=== PATIENT | female | born 1985 | race American Indian/Alaskan Native ===

== ENCOUNTER 2020-02-01 12:04 | Inpatient (IN) | payer MEDICAID ==
--- NOTE | 2020-02-01 12:08 | History and Physical Report ---
History of Present Illness Date of examination: 02/01/20 Chief complaint: elevated b/p and swelling, BMI 85, pt unable to collect 24hr urine at home. History of present illness: EDC Calculations by LMP: 02/21/2020 Past History : 1 Term Births: 0 Premature Births: 0 Living Children: 0 Para: 0 Mult. Births: 0 Prev : 0 Aborta: 0 Elect. Ab: 0 Spont. 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 % Sun Exposure: occasionally Family History Risk Factors: Family History of IA in females < 65 years old: no Dietary Counseling: pn yes Past Medical History: Reviewed history and no changes required: Asthma: childhood, no intubations Past Surgical History: Reviewed history and no changes required: negative Past Medical History Anesthesia Complications: negative Anemia: negative Autoimmune Disorder: negative Bleeding Disorder: negative Blood Transfusions: negative Breast Disease: negative Diabetes: negative Heart Disease: negative Hypertension: negative Hepatitis/Liver Disease: negative Kidney Disease/UTI: negative Neurologic/Epilepsy/Migraines: negative Phlebitis/Varicosities: negative Psychiatric: negative Pulmonary Disease/Asthma: negative Thyroid Disease: negative Hospitalizations: negative 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 of genital herpes: no Partner hx. of genital herpes: no Rash, Viral, or Febrile illness since last LMP? no Varicella/Chicken Pox Status: No TB Risk: no Genetic History Congenital Heart Defect: Mom: no Dad: no Morgan Disease: Mom: no Dad: no Thalassemia Mom: no Dad: no Neural Tube Defect Mom: no Dad: no Down's Syndrome Mom: no Dad: no Luis A-Sachs Mom: no Dad: no Sickle Cell Disease/Trait Mom: no Dad: no Hemophilia Mom: no Dad: no Muscular Dystrophy Mom: no Dad: no Cystic Fibrosis Mom: no Dad: no Wells Chorea Mom: no Dad: no Mental Retardation Mom: no Dad: no Fragile X Mom: no Dad: no Other Genetic/Chromosomal Disorder Mom: no Dad: no Child w/other defect Mom: no Dad: no Enviromental Exposures Xray Exposure: no Medication, drug, or alcohol use since LMP: no Chemical/Other Exposure: no Exposure to Cat Liter: no Hx of Parvovirus (Fifth Disease): no Occupational Exposure to Children: none Active Medications: None Past History Past Medical History: other (see HPI) Past Surgical History: other (see HPI) 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 (see HPI) Family/Genetic History: other (see HPI) - Obstetrical History Expected Date of Delivery: 02/21/20 Actual Gestation: 37 Week(s) 1 Day(s) : 1 Para: 0 Hx # Term Pregnancies: 0 Number of Pregnancies: 0 Spontaneous Abortions: 0 Induced : 0 Number of Living Children: 0 Medications and Allergies Allergies Allergy/AdvReac Type Severity Reaction Status Date / Time No Known Allergies Allergy Unverified 02/01/20 13:03 Review of Systems All systems: negative - Physical Exam Breasts: Positive: normal Cardiovascular: Regular rate Lungs: Positive: Normal air movement Abdomen: Positive: normal appearance, soft Genitourinary (Female): Positive: normal external genitalia, normal perenium Vulva: both: normal Vagina: Positive: normal moisture - Obstetrical Uterine Contraction Monitor Mode: External Results All other labs normal. Assessment and Plan 34y/o @ 37+1 week, unable to complete 24hr urine at home d/t multiple "accidents". b/p elevated today in office 146/98 with 1+ proteinuria on urine dip. GBS Neg. consulted with Dr. brenner, plan to admit for 24hr urine, pre-e labs and monitoring. - Patient Problems (1) 37 weeks gestation of Current Visit: Yes Status: Acute (2) Gestational hypertension Current Visit: Yes Status: Acute Qualifiers: Trimester: third trimester Qualified Code(s): O13.3 - Gestational [-induced] hypertension without significant proteinuria, third trimester Plan to address problem: 24hr urine pre-e labs Monitoring of baby and VS (3) BMI 70 and over, adult Current Visit: Yes Status: Acute Plan to address problem: BMI 85 Anesthesia consult completed
[2020-02-01] MEDS ORDERED: DOCUSATE SODIUM 100 MG CAP PO PRN (12:09)
[2020-02-01] MEDS ORDERED: ACETAMINOPHEN 325 MG TAB PO PRN (12:09)
[2020-02-01] MEDS ORDERED: ALUM-MAG HYDROXIDE-SIMETHICONE 200-200-20MG/5ML ORAL LIQD 30 ML PO PRN (12:09)
[2020-02-01] MEDS ORDERED: MAGNESIUM HYDROXIDE (MOM) ORAL LIQD UDC PO PRN (12:09)
[2020-02-01] MEDS ORDERED: ONDANSETRON 4 MG/2 ML INJ IV PRN (12:09)
[2020-02-01] MEDS ORDERED: SIMETHICONE 80 MG CHEW TAB PO PRN (12:09)
[2020-02-01] MEDS ORDERED: SODIUM CHLORIDE NASAL SPRAY 44ML NS PRN (12:09)
[2020-02-01] MEDS ORDERED: diphenhydrAMINE 25 MG CAP PO PRN (12:09)
[2020-02-01 13:50] LABS: Basophils % (Auto) 0.4 % (0.0-1.8); Eosinophils % (Auto) 0.3 % (0.0-4.3); Hematocrit 30.7 % (30.3-42.9); Hemoglobin 9.9 gm/dl (10.1-14.3); Lymphocytes # (Auto) 1.3 K/mm3 (1.2-5.4); Lymphocytes % (Auto) 15.8 % (13.4-35.0); Mean Corpuscular HGB Conc 32 % (30-34); Mean Corpuscular Volume 86 fl (79-97); Monocytes # (Auto) 0.5 K/mm3 (0.0-0.8); Platelet Count 253 K/mm3 (140-440); Red Blood Count 3.58 M/mm3 (3.65-5.03); Red Cell Distribution Width 16.2 % (13.2-15.2)
[2020-02-01 14:13] LABS: Alanine Aminotransferase 10 units/L (7-56); Uric Acid 4.3 mg/dL (3.5-7.6)
--- NOTE | 2020-02-02 08:41 | Progress Note ---
Assessment and Plan A: 34 y.o. @ 37 + wks, observation for 24 hr urine collection, elevated BP's during office visit. P: 24 hr urine collection ends @ 130pm. Will develop a plan of care after receiving the results. Continue to monitor blood pressures. Consult placed to [facility] for recommendations. Subjective - Subjective Date of service: 02/02/20 (Pt doing well. ) Principal diagnosis: IUP @ 37 + wks, observation, 24 hour protein urine in progress Objective - Vital Signs Vital Signs: Vital Signs - 12hr 02/01/20 02/01/20 02/01/20 20:43 20:48 20:53 Temperature Pulse Rate 84 82 84 Respiratory Rate Blood Pressure Blood Pressure [Left] O2 Sat by Pulse 100 100 100 Oximetry 02/01/20 02/01/20 02/01/20 20:58 21:03 21:08 Temperature Pulse Rate 82 84 89 Respiratory Rate Blood Pressure Blood Pressure [Left] O2 Sat by Pulse 100 100 100 Oximetry 02/01/20 02/01/20 02/01/20 21:13 21:18 21:23 Temperature Pulse Rate 87 83 83 Respiratory Rate Blood Pressure Blood Pressure [Left] O2 Sat by Pulse 100 100 100 Oximetry 02/01/20 02/01/20 02/01/20 21:28 21:33 21:38 Temperature Pulse Rate 86 85 88 Respiratory Rate Blood Pressure Blood Pressure [Left] O2 Sat by Pulse 100 100 100 Oximetry 02/01/20 02/01/20 02/01/20 21:43 21:48 21:53 Temperature Pulse Rate 89 84 86 Respiratory Rate Blood Pressure Blood Pressure [Left] O2 Sat by Pulse 100 100 100 Oximetry 02/01/20 02/01/20 02/01/20 21:58 22:03 22:06 Temperature Pulse Rate 86 86 92 H Respiratory Rate Blood Pressure Blood Pressure [Left] O2 Sat by Pulse 100 100 81 L Oximetry 02/01/20 02/01/20 02/01/20 22:08 22:09 22:13 Temperature Pulse Rate 82 94 H 87 Respiratory Rate Blood Pressure 163/76 Blood Pressure [Left] O2 Sat by Pulse 100 100 Oximetry 02/01/20 02/01/20 02/01/20 22:18 22:23 22:28 Temperature Pulse Rate 85 85 88 Respiratory Rate Blood Pressure Blood Pressure [Left] O2 Sat by Pulse 100 100 100 Oximetry 02/01/20 02/01/20 02/01/20 22:33 22:38 22:43 Temperature Pulse Rate 84 87 89 Respiratory Rate Blood Pressure Blood Pressure [Left] O2 Sat by Pulse 100 100 100 Oximetry 02/01/20 02/01/20 02/01/20 22:48 22:53 22:58 Temperature Pulse Rate 87 86 89 Respiratory Rate Blood Pressure Blood Pressure [Left] O2 Sat by Pulse 100 100 100 Oximetry 02/01/20 02/01/20 02/01/20 23:03 23:24 23:25 Temperature Pulse Rate 85 85 90 Respiratory Rate Blood Pressure 145/66 Blood Pressure [Left] O2 Sat by Pulse 100 100 Oximetry 02/01/20 02/01/20 02/01/20 23:29 23:34 23:37 Temperature 98.4 F Pulse Rate 82 97 H Respiratory 18 Rate Blood Pressure Blood Pressure [Left] O2 Sat by Pulse 100 100 Oximetry 02/01/20 02/01/20 02/01/20 23:39 23:44 23:49 Temperature Pulse Rate 86 89 84 Respiratory Rate Blood Pressure Blood Pressure [Left] O2 Sat by Pulse 99 99 99 Oximetry 02/01/20 02/01/20 02/02/20 23:54 23:59 00:04 Temperature Pulse Rate 86 83 81 Respiratory Rate Blood Pressure Blood Pressure [Left] O2 Sat by Pulse 99 99 99 Oximetry 02/02/20 02/02/20 02/02/20 00:09 00:14 00:19 Temperature Pulse Rate 89 81 84 Respiratory Rate Blood Pressure 138/68 Blood Pressure [Left] O2 Sat by Pulse 98 100 100 Oximetry 02/02/20 02/02/20 02/02/20 00:24 00:29 00:31 Temperature Pulse Rate 91 H 86 70 Respiratory Rate Blood Pressure Blood Pressure [Left] O2 Sat by Pulse 100 100 72 L Oximetry 02/02/20 02/02/20 02/02/20 00:34 00:39 00:44 Temperature Pulse Rate 83 85 89 Respiratory Rate Blood Pressure Blood Pressure [Left] O2 Sat by Pulse 100 99 99 Oximetry 02/02/20 02/02/20 02/02/20 00:49 00:54 00:59 Temperature Pulse Rate 90 85 83 Respiratory Rate Blood Pressure Blood Pressure [Left] O2 Sat by Pulse 98 99 99 Oximetry 02/02/20 02/02/2020 01:04 01:09 01:14 Temperature Pulse Rate 87 88 79 Respiratory Rate Blood Pressure 141/73 Blood Pressure [Left] O2 Sat by Pulse 100 98 99 Oximetry 02/02/20 02/02/20 02/02/20 01:19 01:24 01:29 Temperature Pulse Rate 84 85 86 Respiratory Rate Blood Pressure Blood Pressure [Left] O2 Sat by Pulse 98 98 98 Oximetry 02/02/20 02/02/20 02/02/20 01:34 01:39 01:44 Temperature Pulse Rate 85 87 90 Respiratory Rate Blood Pressure Blood Pressure [Left] O2 Sat by Pulse 98 98 98 Oximetry 02/02/20 02/02/20 02/02/20 01:49 01:51 01:54 Temperature Pulse Rate 93 H 88 85 Respiratory Rate Blood Pressure Blood Pressure [Left] O2 Sat by Pulse 94 86 97 Oximetry 02/02/20 02/02/20 02/02/20 01:56 01:59 02:04 Temperature Pulse Rate 89 95 H 88 Respiratory Rate Blood Pressure Blood Pressure [Left] O2 Sat by Pulse 91 100 99 Oximetry 02/02/20 02/02/20 02/02/20 02:09 02:14 02:19 Temperature Pulse Rate 107 H 90 85 Respiratory Rate Blood Pressure 133/81 Blood Pressure [Left] O2 Sat by Pulse 97 100 99 Oximetry 02/02/20 02/02/20 02/02/20 02:24 02:29 03:00 Temperature Pulse Rate 84 93 H 98 H Respiratory Rate Blood Pressure Blood Pressure [Left] O2 Sat by Pulse 98 98 82 L Oximetry 02/02/20 02/02/20 02/02/20 03:01 03:06 03:09 Temperature Pulse Rate 105 H 86 90 Respiratory Rate Blood Pressure 143/62 Blood Pressure [Left] O2 Sat by Pulse 99 100 87 Oximetry 02/02/20 02/02/20 02/02/20 03:11 03:16 03:19 Temperature Pulse Rate 89 87 88 Respiratory Rate Blood Pressure Blood Pressure [Left] O2 Sat by Pulse 98 99 90 Oximetry 02/02/20 02/02/20 02/02/20 03:21 03:26 03:27 Temperature Pulse Rate 83 93 H 100 H Respiratory Rate Blood Pressure Blood Pressure [Left] O2 Sat by Pulse 99 100 93 Oximetry 02/02/20 02/02/20 02/02/20 03:31 03:36 03:41 Temperature Pulse Rate 82 90 84 Respiratory Rate Blood Pressure Blood Pressure [Left] O2 Sat by Pulse 100 100 99 Oximetry 02/02/20 02/02/20 02/02/20 03:46 03:51 03:56 Temperature Pulse Rate 87 83 87 Respiratory Rate Blood Pressure Blood Pressure [Left] O2 Sat by Pulse 99 98 99 Oximetry 02/02/20 02/02/20 02/02/20 04:00 04:01 04:06 Temperature 98 F Pulse Rate 98 H 90 82 Respiratory 18 Rate Blood Pressure Blood Pressure 124/62 [Left] O2 Sat by Pulse 99 99 100 Oximetry 02/02/20 02/02/20 02/02/20 04:09 04:11 04:16 Temperature Pulse Rate 98 H 84 88 Respiratory Rate Blood Pressure 124/62 Blood Pressure [Left] O2 Sat by Pulse 99 99 Oximetry 02/02/20 02/02/20 02/02/20 04:21 04:26 04:31 Temperature Pulse Rate 87 84 87 Respiratory Rate Blood Pressure Blood Pressure [Left] O2 Sat by Pulse 99 98 98 Oximetry 02/02/20 02/02/20 02/02/20 04:35 04:36 04:41 Temperature Pulse Rate 83 86 93 H Respiratory Rate Blood Pressure Blood Pressure [Left] O2 Sat by Pulse 93 97 94 Oximetry 02/02/20 02/02/20 02/02/20 04:46 04:51 04:56 Temperature Pulse Rate 95 H 95 H 96 H Respiratory Rate Blood Pressure Blood Pressure [Left] O2 Sat by Pulse 94 94 100 Oximetry 02/02/20 02/02/20 02/02/20 05:01 05:06 05:09 Temperature Pulse Rate 86 81 105 H Respiratory Rate Blood Pressure 122/87 Blood Pressure [Left] O2 Sat by Pulse 99 98 Oximetry 02/02/20 02/02/20 02/02/20 05:11 05:16 05:21 Temperature Pulse Rate 98 H 85 86 Respiratory Rate Blood Pressure Blood Pressure [Left] O2 Sat by Pulse 98 99 99 Oximetry 02/02/20 02/02/20 02/02/20 05:26 05:31 05:36 Temperature Pulse Rate 86 88 86 Respiratory Rate Blood Pressure Blood Pressure [Left] O2 Sat by Pulse 99 98 99 Oximetry 02/02/20 02/02/20 02/02/20 05:41 05:46 05:51 Temperature Pulse Rate 84 88 92 H Respiratory Rate Blood Pressure Blood Pressure [Left] O2 Sat by Pulse 99 99 100 Oximetry 02/02/20 02/02/20 02/02/20 05:56 05:58 06:01 Temperature Pulse Rate 86 85 87 Respiratory Rate Blood Pressure Blood Pressure [Left] O2 Sat by Pulse 98 90 98 Oximetry 02/02/20 02/02/20 02/02/20 06:05 06:06 06:09 Temperature Pulse Rate 91 H 94 H 101 H Respiratory Rate Blood Pressure 189/84 Blood Pressure [Left] O2 Sat by Pulse 94 96 Oximetry 02/02/20 02/02/20 02/02/20 06:11 06:24 06:29 Temperature Pulse Rate 85 108 H 94 H Respiratory Rate Blood Pressure Blood Pressure [Left] O2 Sat by Pulse 100 100 99 Oximetry 02/02/20 02/02/20 02/02/20 06:33 06:34 06:39 Temperature Pulse Rate 93 H 89 86 Respiratory Rate Blood Pressure 114/76 Blood Pressure [Left] O2 Sat by Pulse 100 100 Oximetry 02/02/20 02/02/20 02/02/20 06:44 06:49 06:54 Temperature Pulse Rate 101 H 81 85 Respiratory Rate Blood Pressure Blood Pressure [Left] O2 Sat by Pulse 100 100 100 Oximetry 02/02/20 02/02/20 02/02/20 06:59 07:04 07:09 Temperature 98.3 F Pulse Rate 82 80 84 Respiratory 18 Rate Blood Pressure 134/65 Blood Pressure [Left] O2 Sat by Pulse 100 100 Oximetry 02/02/20 02/02/20 02/02/20 07:10 07:15 07:20 Temperature Pulse Rate 85 81 89 Respiratory Rate Blood Pressure Blood Pressure [Left] O2 Sat by Pulse 100 100 100 Oximetry 02/02/20 02/02/20 02/02/20 07:25 07:30 07:35 Temperature Pulse Rate 86 93 H 78 Respiratory Rate Blood Pressure Blood Pressure [Left] O2 Sat by Pulse 100 100 100 Oximetry 02/02/20 02/02/20 02/02/20 07:40 07:45 07:50 Temperature Pulse Rate 84 81 91 H Respiratory Rate Blood Pressure Blood Pressure [Left] O2 Sat by Pulse 100 100 100 Oximetry 02/02/20 02/02/20 02/02/20 07:55 08:00 08:05 Temperature Pulse Rate 93 H 84 85 Respiratory Rate Blood Pressure Blood Pressure [Left] O2 Sat by Pulse 100 100 100 Oximetry 02/02/20 02/02/20 02/02/20 08:10 08:15 08:20 Temperature Pulse Rate 95 H 90 86 Respiratory Rate Blood Pressure Blood Pressure [Left] O2 Sat by Pulse 100 100 100 Oximetry 02/02/20 02/02/20 02/02/20 08:25 08:28 08:30 Temperature Pulse Rate 85 53 L 80 Respiratory Rate Blood Pressure Blood Pressure [Left] O2 Sat by Pulse 100 76 L 100 Oximetry 02/02/20 08:35 Temperature Pulse Rate 77 Respiratory Rate Blood Pressure Blood Pressure [Left] O2 Sat by Pulse 100 Oximetry - Exam Narrative Exam: Pt denies HARMON, blurred vision, spots before her eyes, chest pain, shortness of breath, and upper abdominal pain. BP ranges have been 110's-180's/60-80's. Breasts: deferred Cardiovascular: Normal S1, Normal S2 Lungs: Normal air movement Abdomen: Present: normal appearance, soft Vulva: both: normal Uterus: Present: normal FHR: auscultation normal, category 1 Uterine Contraction Monitor Mode: External Uterine Contraction Pattern: Absent Uterine Tone Measurement Phase: Resting Extremities: edema (+ 2 to lower extremities. ) Deep Tendon Reflex Grade: Normal +2 - Labs Labs: Abnormal Labs 02/01/20 13:15 RBC 3.58 L Hgb 9.9 L RDW 16.2 H Seg Neutrophils % 77.5 H Laboratory Results - last 24 hr 02/01/20 02/01/20 13:15 13:15 WBC 8.3 RBC 3.58 L Hgb 9.9 L Hct 30.7 MCV 86 MCH 28 MCHC 32 RDW 16.2 H Plt Count 253 Lymph % (Auto) 15.8 [place] % (Auto) 6.0 Eos % (Auto) 0.3 Baso % (Auto) 0.4 Lymph # (Auto) 1.3 [place] # (Auto) 0.5 Eos # (Auto) 0.0 Baso # (Auto) 0.0 Seg Neutrophils % 77.5 H Seg Neutrophils # 6.5 Creatinine 0.6 Estimated GFR > 60 Uric Acid 4.3 AST 28 ALT 10
[2020-02-02] MEDS: PRENATAL VIT27-FE FUMARATE-FOLIC ACID VIT TAB PO SCH (09:57)
--- NOTE | 2020-02-02 10:29 | Event Note ---
Date: 02/02/20 (Call placed to [facility]) Consult ordered and call placed to [facility] to let them know that pt was admitted for obs on 02/01 d/t elevated blood pressures in the office. Spoke with Robe at [facility] office and she will let Dr. Lassiter know regarding pt being admitted to obs.
[2020-02-02] MEDS: FERROUS SULFATE 325 MG TAB PO SCH (12:25)
--- NOTE | 2020-02-02 12:59 | Event Note ---
Date: 02/02/20 (Spoke with Dr. Lassiter) Spoke with Dr. Lassiter regarding pt and updated on pt condition and status. No new change in plan per Dr. Lassiter at this time. Continue to collect 24 hr urine, monitor pt blood pressures and status through [facility]. D/t finish at 1330 today. He will come evaluate pt during hospital stay.
--- NOTE | 2020-02-02 19:18 | Event Note ---
Date: 02/02/20 I advised pt and mother of protein findings and that we are now awaiting further recommendations from Dr. Lassiter regarding d/c to home vs labor induction. I advised that 24hr protein was less than 300mg/24 hours at this time. Pt expressed understanding. Pt inquired if she could have less monitoring of her blood pressure and the baby. I advised that she will have NST q shift and BPs q 4hrs for now as she has be stable with normal blood pressures since the admission with a couple of outliers noted. Again pt and mother expressed understanding and questions were addressed and answered.
[2020-02-03 07:13] VITALS: BP 108/71
[2020-02-03] MEDS: FERROUS SULFATE 325 MG TAB PO SCH (09:01)
[2020-02-03] MEDS: PRENATAL VIT27-FE FUMARATE-FOLIC ACID VIT TAB PO SCH (09:01)
--- NOTE | 2020-02-03 09:19 | Discharge Summary ---
Providers - Providers Date of Admission: 02/01/20 12:25 Date of discharge: 02/03/20 Attending physician: FUENTES ORDONEZ 02/02/20 10:22 Consult to Physician [CONS] Routine Comment: Consulting Provider: ALEXIS MUNOZ Physician Instructions: Reason For Exam: Elevated blood pressures during office visit Primary care physician: FUENTES ORDONEZ Hospitalization Reason for admission: Gestational hypertension, morbid obesity with BMI of 85.5 kg/m Condition: Good Pertinent studies: 24-hour urine collection for protein Procedures: 24-hour urine collection Hospital course: Patient was admitted to hospital due to gestational diabetes and inadequate collection of 24-hour urine for protein done at home. Due to patient's hospitalization her vast majority her blood pressures within normal limit with some isolated elevated blood pressures. Her 24-hour urine collection 1300 cc were collected with a urine protein less than 300. Patient will be discharged to home care to normal blood pressures and lack of significant proteinuria. Disposition: DC- TO HOME OR SELFCARE - Discharge Diagnoses (1) 37 weeks gestation of Status: Acute (2) BMI 70 and over, adult Status: Acute (3) Gestational hypertension Status: Acute Qualifiers: Trimester: third trimester Qualified Code(s): O13.3 - Gestational [-induced] hypertension without significant proteinuria, third trimester Core Measure Documentation - Palliative Care Palliative Care/ Comfort Measures: Not Applicable - Core Measures Any of the following diagnoses?: none Exam - Constitutional Vitals: Temp Pulse Resp BP Pulse Ox 98.0 F 88 20 108/71 100 02/03/20 07:15 02/03/20 07:15 02/03/20 07:15 02/03/20 07:15 02/02/20 15:42 General appearance: Present: no acute distress - Respiratory Respiratory effort: normal - Cardiovascular Rhythm: regular - Extremities Extremity abnormal: edema (2+) Peripheral Pulses: within normal limits - Abdominal General gastrointestinal: Present: soft, non-tender Female genitourinary: Present: deferred - Rectal Rectal Exam: deferred - Integumentary Integumentary: Present: clear, warm, dry - Neurologic Neurologic: moves all extremities Plan Activity: fall precautions Weight Bearing Status: Weight Bear as Tolerated Diet: low salt Additional Instructions: Patient given labor cautions call office for fever chills nausea vomiting contractions every 5 minutes rupture of membranes. Also preeclampsia precautions call for headache blurred visions or upper abdominal pain. Follow up with: UFENTES ORDONEZ MD [Primary Care Provider] - 7 Days
== END 2020-02-03 09:34 | disposition home or self-care (01) | DRG 782 ==
LOC: TRG 12:04 → LD 12:05 → TRG 12:22 → LD 12:25
PROVIDERS: ADMIT Obstetrics & Gynecology; ATTEND Obstetrics & Gynecology
DX: O13.3 Gestational [pregnancy-induced] hypertension without significant proteinuria, third trimester (principal); Z3A.37 37 weeks gestation of pregnancy; Z68.45 Body mass index [BMI] 70 or greater, adult; Z82.49 Family history of ischemic heart disease and other diseases of the circulatory system; Z83.3 Family history of diabetes mellitus; O99.213 Obesity complicating pregnancy, third trimester; E66.01 Morbid (severe) obesity due to excess calories
CPT/HCPCS: 36415; 82565; 84156; 84450; 84460; 84550; 85025; G0378; U0003

== ENCOUNTER 2020-02-14 11:16 | Inpatient (IN) | payer MEDICAID ==
[2020-02-14] MEDS ORDERED: LOPERAMIDE 2 MG CAP PO PRN (12:36)
[2020-02-14] MEDS ORDERED: ePHEDrine SULFATE 50 MG/1 ML INJ IV PRN (12:36)
[2020-02-14] MEDS ORDERED: CARBOPROST TROMETHAMINE 250 MCG/1 ML INJ IM PRN (12:36)
[2020-02-14] MEDS ORDERED: LIDOCAINE (2%) 20 MG/1 ML VIAL 20 ML MDV INFILTRATI NR (12:36)
[2020-02-14] MEDS ORDERED: METHYLERGONOVINE MALEATE 0.2 MG/ML VIAL IM PRN (12:36)
[2020-02-14] MEDS ORDERED: OXYTOCIN 10 UNIT/1 ML INJ IM PRN (12:36)
[2020-02-14] MEDS ORDERED: TERBUTALINE 1 MG/1 ML INJ SUB-Q PRN (12:36)
[2020-02-14] MEDS ORDERED: ONDANSETRON 4 MG/2 ML INJ IV PRN (12:36)
[2020-02-14] MEDS ORDERED: miSOPROStol 200 MCG TAB PR PRN (12:36)
--- NOTE | 2020-02-14 12:46 | History and Physical Report ---
History of Present Illness Date of examination: 02/14/20 Date of admission: 02/14/20 11:16 Chief complaint: GHTN and Oligo noted in [facility] office sent to L&D for IOL/delivery History of present illness: Pt denies any chges in HX noted below at todays assessment EDC Confirmation: 02/21/2020 Past History : 1 Term Births: 0 Premature Births: 0 Living Children: 0 Para: 0 Mult. Births: 0 Prev : 0 Aborta: 0 Elect. Ab: 0 Spont. 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 % Sun Exposure: occasionally Family History Risk Factors: Family History of UT in females < 65 years old: no Dietary Counseling: pn yes Past Medical History: Reviewed history and no changes required: Asthma: childhood, no intubations Past Surgical History: Reviewed history and no changes required: negative Past Medical History Anesthesia Complications: negative Anemia: negative Autoimmune Disorder: negative Bleeding Disorder: negative Blood Transfusions: negative Breast Disease: negative Diabetes: negative Heart Disease: negative Hypertension: negative Hepatitis/Liver Disease: negative Kidney Disease/UTI: negative Neurologic/Epilepsy/Migraines: negative Phlebitis/Varicosities: negative Psychiatric: negative Pulmonary Disease/Asthma: negative Thyroid Disease: negative Hospitalizations: negative Surgery (Non-quality head): negative Abnormal PAP: negative DAYNA Exposure: negative Infertility: negative Uterine Anomaly: negative Uterine Surgery (not C/S): negative Other Gynecologic Problems: negative Family Hx: HTN, Diabetes Infection History Hx of STD: Trich HIV Risk Eval: no Hepatitis B Risk Eval: low risk Personal hx. of genital herpes: no Partner hx. of genital herpes: no Rash, Viral, or Febrile illness since last LMP? no Varicella/Chicken Pox Status: No TB Risk: no Genetic History Congenital Heart Defect: Mom: no Dad: no Morgan Disease: Mom: no Dad: no Thalassemia Mom: no Dad: no Neural Tube Defect Mom: no Dad: no Down's Syndrome Mom: no Dad: no Luis A-Sachs Mom: no Dad: no Sickle Cell Disease/Trait Mom: no Dad: no Hemophilia Mom: no Dad: no Muscular Dystrophy Mom: no Dad: no Cystic Fibrosis Mom: no Dad: no [place] Chorea Mom: no Dad: no Mental Retardation Mom: no Dad: no Fragile X Mom: no Dad: no Other Genetic/Chromosomal Disorder Mom: no Dad: no Child w/other defect Mom: no Dad: no Enviromental Exposures Xray Exposure: no Medication, drug, or alcohol use since LMP: no Chemical/Other Exposure: no Exposure to Cat Liter: no Hx of Parvovirus (Fifth Disease): no Occupational Exposure to Children: none Active Medications: None Current Allergies: No known allergies Past History Past Medical History: no pertinent history Past Surgical History: no surgical history REHAB AID History: fibroids Family/Genetic History: diabetes, hypertension Social history: no significant social history, single, lives with family - Obstetrical History Expected Date of Delivery: 02/21/20 Actual Gestation: 39 Week(s) 0 Day(s) : 1 Para: 0 Hx # Term Pregnancies: 0 Number of Pregnancies: 0 Spontaneous Abortions: 0 Induced : 0 Number of Living Children: 0 Medications and Allergies Allergies Allergy/AdvReac Type Severity Reaction Status Date / Time No Known Allergies Allergy Verified 02/14/20 11:36 Home Medications Medication Instructions Recorded Confirmed Last Taken Type Iron 1 tab PO DAILY 02/03/20 02/03/20 01/31/20 09:00 History 1 Vitamin 1 tab PO DAILY 02/03/20 02/03/20 01/31/20 10:00 History 1 Review of Systems All systems: negative Constitutional: weight gain Eyes: normal appearance Ears, nose, mouth and throat: deferred Breasts: normal Genitourinary: normal appearance Rectal Exam: deferred Integumentary: deferred - Vital Signs Vital signs: Vital Signs Pulse BP 110 H 142/67 02/14/20 11:53 02/14/20 11:53 Temp Pulse Resp BP Pulse Ox 98.5 F 110 H 24 142/67 02/14/20 12:06 02/14/20 12:06 02/14/20 12:06 02/14/20 12:06 - Physical Exam Breasts: Positive: deferred Cardiovascular: Regular rate, Normal S1, Normal S2 Lungs: Positive: Clear to auscultation Abdomen: Positive: normal appearance, soft, normal bowel sounds. Negative: distention, tenderness Genitourinary (Female): Positive: normal external genitalia Vulva: both: normal Vagina: Positive: normal moisture. Negative: discharge Cervix: Negative: lesion, discharge Uterus: Positive: normal size, normal contour Adnexa: both: normal Anus/Rectum: Positive: normal perianal skin, heme negative. Negative: rectal mass, hemorrhoids Extremities: Positive: edema Deep Tendon Reflex Grade: Normal +2 - Obstetrical FHR: auscultation normal Uterine Contraction Monitor Mode: External Results All other labs normal. GBS Negative GTT @ 28w 94 Total protein: 09/07/19 250 02/02/20 234 HBsAg Screen Negative Negative *1 RPR Non Reactive Non Reactive *2 Rubella Antibodies, IgG 1.31 index Immune >0.99 *3 Non-immune <0.90 Equivocal 0.90 - 0.99 Immune >0.99 ABO Grouping A *4 Rh Factor Positive *5 Please note: Prior records for this patient's ABO / Rh type are not available for additional verification. Antibody Screen Negative Negative *6 WBC 6.0 x10E3/uL 3.4-10.8 *7 RBC 3.78 x10E6/uL 3.77-5.28 *8 Hemoglobin [L] 10.0 g/dL 11.1-15.9 *9 Hematocrit [L] 32.3 % 34.0-46.6 *10 MCV 85 fL 79-97 *11 MCH [L] 26.5 pg 26.6-33.0 *12 MCHC [L] 31.0 g/dL 31.5-35.7 *13 RDW [H] 16.8 % 11.7-15.4 *14 Platelets 206 x10E3/uL 150-450 *15 Neutrophils 59 % Not Estab. *16 Lymphs 33 % Not Estab. *17 Monocytes 7 % Not Estab. *18 Eos 1 % Not Estab. *19 Basos 0 % Not Estab. *20 ! Immature Cells <No Reported Value> *21 Neutrophils (Absolute) 3.5 x10E3/uL 1.4-7.0 *22 Lymphs (Absolute) 2.0 x10E3/uL 0.7-3.1 *23 Monocytes(Absolute) 0.4 x10E3/uL 0.1-0.9 *24 Eos (Absolute) 0.1 x10E3/uL 0.0-0.4 *25 Baso (Absolute) 0.0 x10E3/uL 0.0-0.2 *26 ! Immature Granulocytes 0 % Not Estab. *27 ! Immature Grans (Abs) 0.0 x10E3/uL 0.0-0.1 *28 ! NRBC <No Reported Value> *29 Hematology Comments: <No Reported Value> *30 Tests: (2) HB Solu + Rflx Frac (373125) Hemoglobin (Hgb) Solubility Negative Negative *31 Tests: (3) HIV Ag/Ab with Reflex ([id number]) HIV Screen 4th Generation wRfx Non Reactive Non Reactive *32 Tests: (4) Varicella-Zoster V Ab, IgG ([id number]) ! Varicella Zoster IgG [L] <135 index Immune >165 *33 Negative <135 Equivocal 135 - 165 Positive >165 A positive result generally indicates exposure to the pathogen or administration of specific immunoglobulins, but it is not indication of active infection or stage of disease. Tests: (5) Gest. Diabetes 1-Hr Screen ([id number]) ! Gestational Diabetes Screen 104 mg/dL 65-139 *34 According to ADA, a glucose threshold of >139 mg/dL after 50-gram load identifies approximately 80% of women with gestational diabetes mellitus, while the sensitivity is further increased to approximately 90% by a threshold of >129 mg/dL. Tests: (6) HCV Ab w/Rflx to Verification ([id number]) ! HCV Ab <0.1 s/co ratio 0.0-0.9 *35 Tests: (7) Comment: ([id number]) ! Comment: SPRCS *36 Non reactive HCV antibody screen is consistent with no HCV infection, unless recent infection is suspected or other evidence exists to indicate HCV infection. Tests: (8) Urine Culture, Routine ([id number]) Urine Culture, Routine Final report *37 Tests: (9) Result ([id number]) ! Result 1 MUG *38 Mixed urogenital trini 10,000-25,000 colony forming units per mL Assessment and Plan 34yo @ 39weeks sent from [facility] for IOL/delivery due to oligo and GHTN. GBS negative. All orders in EMR. SVE defered until Dr Barr can come to evaluate pt. All questions addressed from pt and her mom. - Patient Problems (1) Gestational hypertension Onset Date: ~02/14/20 Current Visit: No Status: Acute Qualifiers: Trimester: third trimester Qualified Code(s): O13.3 - Gestational [-induced] hypertension without significant proteinuria, third trimester Plan to address problem: Dr Barahona called BP 150/80 in their office this morning. GHTN move forward with delivery. (2) Oligohydramnios in third trimester Onset Date: ~02/14/20 Current Visit: Yes Status: Acute Qualifiers: Fetus number: single or unspecified fetus Qualified Code(s): O41.03X0 - Oligohydramnios, third trimester, not applicable or unspecified Plan to address problem: Received a call from Dr Barahona @ [facility] notifying us that pt's ARAM 5 and to move forward IOL/delivery. Pt instructed to come to L&D (3) Morbid obesity with BMI of 70 and over, adult Onset Date: ~02/14/20 Current Visit: Yes Status: Acute Plan to address problem: BMI @ the first visit in office 79 todays BMI is 84 Pt has had a 32 pound wgt gain for the
[2020-02-14 13:34] LABS: Hematocrit 27.8 % (30.3-42.9); Hemoglobin 9.5 gm/dl (10.1-14.3); Mean Corpuscular HGB Conc 34 % (30-34); Mean Corpuscular Volume 84 fl (79-97); Platelet Count 207 K/mm3 (140-440); Red Blood Count 3.31 M/mm3 (3.65-5.03)
[2020-02-14 13:57] LABS: Alanine Aminotransferase 8 units/L (7-56); Uric Acid 4.1 mg/dL (3.5-7.6)
[2020-02-14] MEDS: LACTATED RINGERS 1,000 ML IV SCH ×2 (15:04→22:35)
[2020-02-14 15:31] LABS: Bilirubin,Urine NEG (Negative); Blood,Urine NEG (Negative); Color,Urine Yellow (Yellow); Mucus,Urine FEW /HPF; Protein,Urine <15 mg/dL mg/dL (Negative)
--- NOTE | 2020-02-14 19:34 | Progress Note ---
Assessment and Plan Limitations of determining adequateness of the pelvis at this EGA and BMI discussed. She was informed there may be a 1-2# weight discrepancy by US in the 3rd trimester. Risks with ZOE discussed, including but not limited to, shoulder dystocia in which the may have transient or permanent paralysis of the the extremities, brain damage or as well as infection. Also discussed possible injury to the rectum or perineum that may require multiple surgeries and result in permanent difficulties with bowel movements and pain. Risks associated with delivery explained, including but not limited to, bleeding that may require a blood transfusion, infection, injury to her bowel and/or bladder or ureters that may be life threatening or fatal. Questions were encouraged and answered. . Serial IOL explained, with patient's BMI she's is a poor surgical candidate. Will attempt to perform IOL procedures only in the am. . Will have continuous monitoring tonight and start cervidil in am. She voiced understanding and desires to proceed with ZOE - Patient Problems (1) 39 weeks gestation of Onset Date: ~02/14/20 Current Visit: Yes Status: Acute (2) Morbid obesity with BMI of 70 and over, adult Onset Date: ~02/14/20 Current Visit: Yes Status: Acute (3) Oligohydramnios in third trimester Onset Date: ~02/14/20 Current Visit: Yes Status: Acute Qualifiers: Fetus number: single or unspecified fetus Qualified Code(s): O41.03X0 - Oligohydramnios, third trimester, not applicable or unspecified (4) Gestational hypertension Onset Date: ~02/14/20 Current Visit: No Status: Acute Qualifiers: Trimester: third trimester Qualified Code(s): O13.3 - Gestational [-induced] hypertension without significant proteinuria, third trimester Subjective - Subjective Date of service: 02/14/20 Principal diagnosis: IUP@[id number], BMI 85, oligohydramnios, GHTN Interval history: No complaints, FM, no UC's, no contractions. Patient reports: movement normal, no new complaints, no loss of fluid, no vaginal bleeding, no contractions Objective - Vital Signs Vital Signs: Vital Signs - 12hr 02/14/20 02/14/20 02/14/20 11:53 12:06 13:17 Temperature 98.5 F Pulse Rate 110 H 110 H 87 Respiratory 24 Rate Blood Pressure 142/67 125/66 Blood Pressure 142/67 [Right] O2 Sat by Pulse Oximetry 02/14/20 02/14/20 02/14/20 13:19 13:24 13:29 Temperature Pulse Rate 44 L 85 91 H Respiratory Rate Blood Pressure Blood Pressure [Right] O2 Sat by Pulse 98 100 100 Oximetry 02/14/20 02/14/20 02/14/20 13:34 13:39 13:44 Temperature Pulse Rate 86 93 H 96 H Respiratory Rate Blood Pressure Blood Pressure [Right] O2 Sat by Pulse 100 100 100 Oximetry 02/14/20 02/14/20 02/14/20 13:49 13:54 13:59 Temperature Pulse Rate 95 H 92 H 89 Respiratory Rate Blood Pressure Blood Pressure [Right] O2 Sat by Pulse 100 100 100 Oximetry 02/14/20 02/14/20 02/14/20 14:04 14:09 14:14 Temperature Pulse Rate 90 86 92 H Respiratory Rate Blood Pressure Blood Pressure [Right] O2 Sat by Pulse 100 100 100 Oximetry 02/14/20 02/14/20 02/14/20 15:06 15:11 15:16 Temperature Pulse Rate 82 74 97 H Respiratory Rate Blood Pressure 128/58 Blood Pressure [Right] O2 Sat by Pulse 100 100 100 Oximetry 02/14/20 02/14/20 02/14/20 15:21 15:26 15:31 Temperature Pulse Rate 91 H 84 82 Respiratory Rate Blood Pressure Blood Pressure [Right] O2 Sat by Pulse 100 100 100 Oximetry 02/14/20 02/14/20 02/14/20 15:36 15:38 15:41 Temperature Pulse Rate 85 64 90 Respiratory Rate Blood Pressure Blood Pressure [Right] O2 Sat by Pulse 100 89 100 Oximetry 02/14/20 02/14/20 02/14/20 15:46 15:49 15:51 Temperature Pulse Rate 87 87 81 Respiratory Rate Blood Pressure Blood Pressure [Right] O2 Sat by Pulse 100 86 100 Oximetry 02/14/20 02/14/20 02/14/20 15:56 16:01 16:06 Temperature Pulse Rate 86 84 84 Respiratory Rate Blood Pressure Blood Pressure [Right] O2 Sat by Pulse 100 100 100 Oximetry 02/14/20 02/14/20 02/14/20 16:11 16:16 16:21 Temperature Pulse Rate 88 105 H 88 Respiratory Rate Blood Pressure Blood Pressure [Right] O2 Sat by Pulse 100 100 100 Oximetry 02/14/20 02/14/20 02/14/20 16:26 16:31 16:36 Temperature Pulse Rate 92 H 94 H 85 Respiratory Rate Blood Pressure Blood Pressure [Right] O2 Sat by Pulse 100 100 100 Oximetry 02/14/20 02/14/20 02/14/20 16:41 16:46 16:51 Temperature Pulse Rate 90 84 86 Respiratory Rate Blood Pressure Blood Pressure [Right] O2 Sat by Pulse 100 100 100 Oximetry 02/14/20 02/14/20 02/14/20 16:55 16:56 17:01 Temperature Pulse Rate 85 85 83 Respiratory Rate Blood Pressure 138/62 Blood Pressure [Right] O2 Sat by Pulse 100 100 Oximetry 02/14/20 02/14/20 02/14/20 17:06 17:11 17:16 Temperature Pulse Rate 86 91 H 86 Respiratory Rate Blood Pressure Blood Pressure [Right] O2 Sat by Pulse 100 100 100 Oximetry 02/14/20 02/14/20 02/14/20 17:21 17:26 17:31 Temperature Pulse Rate 87 85 89 Respiratory Rate Blood Pressure Blood Pressure [Right] O2 Sat by Pulse 100 100 100 Oximetry 02/14/20 02/14/20 02/14/20 17:34 17:36 17:41 Temperature Pulse Rate 90 90 86 Respiratory Rate Blood Pressure Blood Pressure [Right] O2 Sat by Pulse 81 L 100 100 Oximetry 02/14/20 02/14/20 02/14/20 17:46 17:51 17:55 Temperature Pulse Rate 86 82 81 Respiratory Rate Blood Pressure 119/57 Blood Pressure [Right] O2 Sat by Pulse 100 100 Oximetry 02/14/20 02/14/20 02/14/20 17:56 18:01 18:06 Temperature Pulse Rate 99 H 73 87 Respiratory Rate Blood Pressure Blood Pressure [Right] O2 Sat by Pulse 100 100 99 Oximetry 02/14/20 02/14/20 02/14/20 18:11 18:16 18:21 Temperature Pulse Rate 79 85 77 Respiratory Rate Blood Pressure Blood Pressure [Right] O2 Sat by Pulse 100 100 99 Oximetry 02/14/20 02/14/20 02/14/20 18:26 18:31 18:36 Temperature Pulse Rate 82 82 85 Respiratory Rate Blood Pressure Blood Pressure [Right] O2 Sat by Pulse 100 99 99 Oximetry 02/14/20 02/14/20 02/14/20 18:41 18:46 18:49 Temperature 99.1 F Pulse Rate 87 99 H Respiratory Rate Blood Pressure Blood Pressure [Right] O2 Sat by Pulse 100 99 Oximetry 02/14/20 02/14/20 02/14/20 18:51 18:55 18:56 Temperature Pulse Rate 97 H 90 87 Respiratory Rate Blood Pressure 115/58 Blood Pressure [Right] O2 Sat by Pulse 100 100 Oximetry 02/14/20 02/14/20 02/14/20 19:01 19:06 19:09 Temperature Pulse Rate 89 91 H 92 H Respiratory Rate Blood Pressure 111/60 Blood Pressure [Right] O2 Sat by Pulse 100 100 Oximetry 02/14/20 02/14/20 19:11 19:16 Temperature Pulse Rate 90 93 H Respiratory Rate Blood Pressure Blood Pressure [Right] O2 Sat by Pulse 100 100 Oximetry - Exam Breasts: deferred Cardiovascular: Regular rate Lungs: Normal air movement Abdomen: Present: other Vulva: both: normal Uterus: Present: other (Unable to palpate) FHR: category 1 Uterine Contraction Monitor Mode: External Cervical Dilatation: 1 Cervical Effacement Percentage: 30 station: -3 Uterine Contraction Pattern: Absent - Labs Labs: Abnormal Labs 02/14/20 02/14/20 02/14/20 13:12 13:12 Unknown RBC 3.31 L Hgb 9.5 L Hct 27.8 L RDW 16.0 H Lactate Dehydrogenase 272 H U Epithel Cells (Auto) 15.0 H Laboratory Results - last 24 hr 02/14/20 02/14/20 02/14/20 13:12 13:12 13:12 WBC 8.6 RBC 3.31 L Hgb 9.5 L Hct 27.8 L MCV 84 MCH 29 MCHC 34 RDW 16.0 H Plt Count 207 Creatinine Estimated GFR Uric Acid AST ALT Lactate Dehydrogenase Urine Color Urine Turbidity Urine pH Ur Specific [place] Urine Protein Urine Glucose (UA) Urine Ketones Urine Blood Urine Nitrite Urine Bilirubin Urine Urobilinogen Ur Leukocyte Esterase Urine WBC (Auto) Urine RBC (Auto) U Epithel Cells (Auto) Urine Mucus Syphilis IgG Antibody Nonreactive Blood Type A POSITIVE Antibody Screen Negative 02/14/20 02/14/20 13:12 Unknown WBC RBC Hgb Hct MCV MCH MCHC RDW Plt Count Creatinine 0.6 Estimated GFR > 60 Uric Acid 4.1 AST 14 ALT 8 Lactate Dehydrogenase 272 H Urine Color Yellow Urine Turbidity Slightly-cloudy Urine pH 6.0 Ur Specific [place] 1.018 Urine Protein <15 mg/dl Urine Glucose (UA) Neg Urine Ketones Neg Urine Blood Neg Urine Nitrite Neg Urine Bilirubin Neg Urine Urobilinogen 4.0 Ur Leukocyte Esterase Neg Urine WBC (Auto) 5.0 Urine RBC (Auto) 3.0 U Epithel Cells (Auto) 15.0 H Urine Mucus Few Syphilis IgG Antibody Blood Type Antibody Screen
[2020-02-14] MEDS ORDERED: DINOPROSTONE 10 MG VAG SUPP VG NR (22:00)
[2020-02-14] MEDS ORDERED: MINERAL OIL 30 ML ORAL LIQD PO PRN (22:00)
[2020-02-15] MEDS: LACTATED RINGERS 1,000 ML IV SCH (06:38)
--- NOTE | 2020-02-15 07:08 | Progress Note ---
Assessment and Plan Pt in good spirits this AM. Discussed MORENA Serial IOL, use of Cervidil. Also voiced my concern with skin breakdown from constant urine leakage Pt agreed to hernandez cath. Cervidil and Hernandez placed @ 0645 Pt tolerated procedures well. Pelvis appears to be adequate with limitations of exam. FHR Cat 1 Occ mild ctx recorded. All questions addressed. Dr Barr given report. Spoke with CJ in Blood Bank there is blood available - Patient Problems (1) Gestational hypertension Onset Date: ~02/14/20 Current Visit: No Status: Acute Qualifiers: Trimester: third trimester Qualified Code(s): O13.3 - Gestational [-induced] hypertension without significant proteinuria, third trimester Plan to address problem: continue to monitor BPs 120/80 (2) Oligohydramnios in third trimester Onset Date: ~02/14/20 Current Visit: Yes Status: Acute Qualifiers: Fetus number: single or unspecified fetus Qualified Code(s): O41.03X0 - Oligohydramnios, third trimester, not applicable or unspecified (3) Morbid obesity with BMI of 70 and over, adult Onset Date: ~02/14/20 Current Visit: Yes Status: Acute Subjective - Subjective Date of service: 02/15/20 (cervidil placed) Principal diagnosis: IUP@39w1d, BMI 85, oligohydramnios, GHTN Cervidil Interval history: Pt denies any chges in HX noted below at todays assessment EDC Confirmation: 02/21/2020 Past History : 1 Term Births: 0 Premature Births: 0 Living Children: 0 Para: 0 Mult. Births: 0 Prev : 0 Aborta: 0 Elect. Ab: 0 Spont. 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 % Sun Exposure: occasionally Family History Risk Factors: Family History of [place] in females < 65 years old: no Dietary Counseling: pn yes Past Medical History: Reviewed history and no changes required: Asthma: childhood, no intubations Past Surgical History: Reviewed history and no changes required: negative Past Medical History Anesthesia Complications: negative Anemia: negative Autoimmune Disorder: negative Bleeding Disorder: negative Blood Transfusions: negative Breast Disease: negative Diabetes: negative Heart Disease: negative Hypertension: negative Hepatitis/Liver Disease: negative Kidney Disease/UTI: negative Neurologic/Epilepsy/Migraines: negative Phlebitis/Varicosities: negative Psychiatric: negative Pulmonary Disease/Asthma: negative Thyroid Disease: negative Hospitalizations: negative Surgery (Non-expansion joint builder): negative Abnormal PAP: negative DAYNA Exposure: negative Infertility: negative Uterine Anomaly: negative Uterine Surgery (not C/S): negative Other Gynecologic Problems: negative Family Hx: HTN, Diabetes Infection History Hx of STD: Trich HIV Risk Eval: no Hepatitis B Risk Eval: low risk Personal hx. of genital herpes: no Partner hx. of genital herpes: no Rash, Viral, or Febrile illness since last LMP? no Varicella/Chicken Pox Status: No TB Risk: no Genetic History Congenital Heart Defect: Mom: no Dad: no Morgan Disease: Mom: no Dad: no Thalassemia Mom: no Dad: no Neural Tube Defect Mom: no Dad: no Down's Syndrome Mom: no Dad: no Luis A-Sachs Mom: no Dad: no Sickle Cell Disease/Trait Mom: no Dad: no Hemophilia Mom: no Dad: no Muscular Dystrophy Mom: no Dad: no Cystic Fibrosis Mom: no Dad: no Emilia Chorea Mom: no Dad: no Mental Retardation Mom: no Dad: no Fragile X Mom: no Dad: no Other Genetic/Chromosomal Disorder Mom: no Dad: no Child w/other defect Mom: no Dad: no Enviromental Exposures Xray Exposure: no Medication, drug, or alcohol use since LMP: no Chemical/Other Exposure: no Exposure to Cat Liter: no Hx of Parvovirus (Fifth Disease): no Occupational Exposure to Children: none Active Medications: None Current Allergies: No known allergies Patient reports: movement normal, no new complaints, no loss of fluid, no vaginal bleeding, no contractions Objective - Vital Signs Vital Signs: Vital Signs - 12hr 02/14/20 02/14/20 02/14/20 19:06 19:09 19:11 Temperature Pulse Rate 91 H 92 H 90 Blood Pressure 111/60 O2 Sat by Pulse 100 100 Oximetry 02/14/20 02/14/20 02/14/20 19:15 19:16 19:38 Temperature 98.8 F Pulse Rate 93 H 90 Blood Pressure O2 Sat by Pulse 100 100 Oximetry 02/14/20 02/14/20 02/14/20 19:43 19:48 19:53 Temperature Pulse Rate 88 86 84 Blood Pressure O2 Sat by Pulse 100 100 99 Oximetry 02/14/20 02/14/20 02/14/20 19:56 19:58 20:03 Temperature Pulse Rate 80 89 84 Blood Pressure 113/53 O2 Sat by Pulse 100 100 Oximetry 02/14/20 02/14/20 02/14/20 20:08 20:13 20:18 Temperature Pulse Rate 80 83 86 Blood Pressure O2 Sat by Pulse 100 100 100 Oximetry 02/14/20 02/14/20 02/14/20 20:23 20:28 20:33 Temperature Pulse Rate 92 H 85 84 Blood Pressure O2 Sat by Pulse 100 100 100 Oximetry 02/14/20 02/14/20 02/14/20 20:38 20:43 20:48 Temperature Pulse Rate 87 86 90 Blood Pressure O2 Sat by Pulse 100 100 100 Oximetry 02/14/20 02/14/20 02/14/20 20:50 20:53 20:58 Temperature Pulse Rate 88 86 86 Blood Pressure 118/54 O2 Sat by Pulse 100 100 Oximetry 02/14/20 02/14/20 02/14/20 21:03 21:08 21:13 Temperature Pulse Rate 92 H 77 94 H Blood Pressure O2 Sat by Pulse 100 100 99 Oximetry 02/14/20 02/14/20 02/14/20 21:18 21:23 21:28 Temperature Pulse Rate 79 85 90 Blood Pressure O2 Sat by Pulse 100 100 99 Oximetry 02/14/20 02/14/20 02/14/20 21:33 21:38 21:43 Temperature Pulse Rate 79 92 H 91 H Blood Pressure O2 Sat by Pulse 100 99 100 Oximetry 02/14/20 02/14/20 02/14/20 21:46 21:48 21:51 Temperature Pulse Rate 140 H 92 H 90 Blood Pressure 120/68 O2 Sat by Pulse 87 99 Oximetry 02/14/20 02/14/20 02/14/20 21:53 21:58 22:03 Temperature Pulse Rate 94 H 86 89 Blood Pressure O2 Sat by Pulse 100 100 100 Oximetry 02/14/20 02/14/20 02/14/20 22:08 22:13 22:18 Temperature Pulse Rate 92 H 87 83 Blood Pressure O2 Sat by Pulse 100 100 99 Oximetry 02/14/20 02/14/20 02/14/20 22:23 22:28 22:33 Temperature Pulse Rate 94 H 83 79 Blood Pressure O2 Sat by Pulse 99 100 100 Oximetry 02/14/20 02/14/20 02/14/20 22:38 22:43 22:48 Temperature Pulse Rate 90 85 93 H Blood Pressure O2 Sat by Pulse 100 100 100 Oximetry 02/14/20 02/14/20 02/14/20 22:51 22:53 22:58 Temperature Pulse Rate 114 H 84 98 H Blood Pressure 127/71 O2 Sat by Pulse 100 98 Oximetry 02/14/20 02/14/20 02/14/20 23:03 23:08 23:13 Temperature Pulse Rate 90 98 H 85 Blood Pressure O2 Sat by Pulse 100 100 100 Oximetry 02/14/20 02/14/20 02/14/20 23:15 23:18 23:23 Temperature 98.9 F Pulse Rate 89 79 Blood Pressure O2 Sat by Pulse 100 100 Oximetry 02/14/20 02/14/20 02/14/20 23:28 23:33 23:38 Temperature Pulse Rate 96 H 89 91 H Blood Pressure O2 Sat by Pulse 99 100 100 Oximetry 02/14/20 02/14/20 02/14/20 23:43 23:48 23:51 Temperature Pulse Rate 85 83 96 H Blood Pressure 123/61 O2 Sat by Pulse 100 100 Oximetry 02/14/20 02/14/20 02/15/20 23:53 23:58 00:03 Temperature Pulse Rate 95 H 95 H 94 H Blood Pressure O2 Sat by Pulse 100 100 100 Oximetry 02/15/20 02/15/20 02/15/20 00:08 00:13 00:18 Temperature Pulse Rate 99 H 88 84 Blood Pressure O2 Sat by Pulse 100 100 100 Oximetry 02/15/20 02/15/20 02/15/20 00:23 00:28 00:33 Temperature Pulse Rate 87 89 90 Blood Pressure O2 Sat by Pulse 100 100 100 Oximetry 02/15/20 02/15/20 02/15/20 00:38 00:43 00:48 Temperature Pulse Rate 86 87 86 Blood Pressure O2 Sat by Pulse 100 100 99 Oximetry 02/15/20 02/15/20 02/15/20 00:51 00:53 00:58 Temperature Pulse Rate 89 93 H 90 Blood Pressure 128/64 O2 Sat by Pulse 98 100 Oximetry 02/15/20 02/15/20 02/15/20 01:03 01:08 01:13 Temperature Pulse Rate 89 90 94 H Blood Pressure O2 Sat by Pulse 96 100 99 Oximetry 02/15/20 02/15/20 02/15/20 01:18 01:23 01:26 Temperature Pulse Rate 109 H 87 76 Blood Pressure O2 Sat by Pulse 98 100 85 Oximetry 02/15/20 02/15/20 02/15/20 01:28 01:33 01:38 Temperature Pulse Rate 91 H 91 H 86 Blood Pressure O2 Sat by Pulse 100 100 100 Oximetry 02/15/20 02/15/20 02/15/20 01:43 01:49 01:51 Temperature Pulse Rate 84 85 89 Blood Pressure 115/54 O2 Sat by Pulse 99 100 Oximetry 02/15/20 02/15/20 02/15/20 01:54 01:59 02:04 Temperature Pulse Rate 86 84 83 Blood Pressure O2 Sat by Pulse 99 100 100 Oximetry 02/15/20 02/15/20 02/15/20 02:09 02:14 02:19 Temperature Pulse Rate 85 86 83 Blood Pressure O2 Sat by Pulse 100 100 100 Oximetry 02/15/20 02/15/20 02/15/20 02:24 02:29 02:34 Temperature Pulse Rate 75 85 85 Blood Pressure O2 Sat by Pulse 100 100 100 Oximetry 02/15/20 02/15/20 02/15/20 02:39 02:44 02:49 Temperature Pulse Rate 82 81 84 Blood Pressure O2 Sat by Pulse 100 100 99 Oximetry 02/15/20 02/15/20 02/15/20 02:51 02:54 02:59 Temperature Pulse Rate 83 80 82 Blood Pressure 122/61 O2 Sat by Pulse 100 100 Oximetry 02/15/20 02/15/20 02/15/20 03:04 03:09 03:14 Temperature Pulse Rate 82 82 80 Blood Pressure O2 Sat by Pulse 100 100 100 Oximetry 02/15/20 02/15/20 02/15/20 03:15 03:19 03:24 Temperature 98.7 F Pulse Rate 83 90 94 H Blood Pressure O2 Sat by Pulse 93 100 96 Oximetry 02/15/20 02/15/20 02/15/20 03:29 03:34 03:39 Temperature Pulse Rate 93 H 85 81 Blood Pressure O2 Sat by Pulse 98 99 99 Oximetry 02/15/20 02/15/20 02/15/20 03:44 03:49 03:51 Temperature Pulse Rate 83 101 H 90 Blood Pressure 127/73 O2 Sat by Pulse 99 100 Oximetry 02/15/20 02/15/20 02/15/20 03:54 03:59 04:04 Temperature Pulse Rate 77 84 80 Blood Pressure O2 Sat by Pulse 98 99 99 Oximetry 02/15/20 02/15/20 02/15/20 04:09 04:14 04:19 Temperature Pulse Rate 86 85 92 H Blood Pressure O2 Sat by Pulse 99 99 100 Oximetry 02/15/20 02/15/20 02/15/20 04:24 04:29 04:34 Temperature Pulse Rate 92 H 80 99 H Blood Pressure O2 Sat by Pulse 99 99 99 Oximetry 02/15/20 02/15/20 02/15/20 04:39 04:44 04:51 Temperature Pulse Rate 91 H 93 H 90 Blood Pressure 116/74 O2 Sat by Pulse 99 100 Oximetry 02/15/20 02/15/20 02/15/20 05:13 05:18 05:23 Temperature Pulse Rate 102 H 89 93 H Blood Pressure O2 Sat by Pulse 100 100 99 Oximetry 02/15/20 02/15/20 02/15/20 05:28 05:33 05:36 Temperature Pulse Rate 91 H 84 98 H Blood Pressure O2 Sat by Pulse 100 100 94 Oximetry 02/15/20 02/15/20 02/15/20 05:38 05:43 05:48 Temperature Pulse Rate 86 84 84 Blood Pressure O2 Sat by Pulse 100 100 100 Oximetry 02/15/20 02/15/20 02/15/20 05:51 05:53 05:58 Temperature Pulse Rate 90 85 79 Blood Pressure 125/66 O2 Sat by Pulse 100 100 Oximetry 02/15/20 02/15/20 02/15/20 06:03 06:08 06:13 Temperature Pulse Rate 81 81 82 Blood Pressure O2 Sat by Pulse 100 100 100 Oximetry 02/15/20 02/15/20 02/15/20 06:18 06:23 06:28 Temperature Pulse Rate 81 80 82 Blood Pressure O2 Sat by Pulse 100 100 100 Oximetry 02/15/20 02/15/20 02/15/20 06:33 06:38 06:43 Temperature Pulse Rate 83 101 H 93 H Blood Pressure O2 Sat by Pulse 100 98 100 Oximetry 02/15/20 02/15/20 02/15/20 06:51 06:54 06:59 Temperature Pulse Rate 97 H 93 H 90 Blood Pressure 124/81 O2 Sat by Pulse 100 100 Oximetry 02/15/20 07:03 Temperature Pulse Rate 63 Blood Pressure O2 Sat by Pulse 82 L Oximetry - Exam Breasts: deferred Cardiovascular: Regular rate Lungs: Normal air movement Abdomen: Present: normal appearance, soft. Absent: distention, tenderness Uterus: Present: normal FHR: auscultation normal, category 1 Uterine Contraction Monitor Mode: External Cervical Dilatation: 1.5 (vertex palpated) Cervical Effacement Percentage: 50 (Cervidil placed) station: -2 Uterine Contraction Pattern: Irregular Uterine Tone Measurement Phase: Resting Uterine Contraction Intensity: Mild Extremities: edema Deep Tendon Reflex Grade: Normal +2 - Labs Labs: Abnormal Labs 02/14/20 02/14/20 02/14/20 13:12 13:12 Unknown RBC 3.31 L Hgb 9.5 L Hct 27.8 L RDW 16.0 H Lactate Dehydrogenase 272 H U Epithel Cells (Auto) 15.0 H Laboratory Results - last 24 hr 02/14/20 02/14/20 02/14/20 13:12 13:12 13:12 WBC 8.6 RBC 3.31 L Hgb 9.5 L Hct 27.8 L MCV 84 MCH 29 MCHC 34 RDW 16.0 H Plt Count 207 Creatinine Estimated GFR Uric Acid AST ALT Lactate Dehydrogenase Urine Color Urine Turbidity Urine pH Ur Specific [place] Urine Protein Urine Glucose (UA) Urine Ketones Urine Blood Urine Nitrite Urine Bilirubin Urine Urobilinogen Ur Leukocyte Esterase Urine WBC (Auto) Urine RBC (Auto) U Epithel Cells (Auto) Urine Mucus Syphilis IgG Antibody Nonreactive Blood Type A POSITIVE Antibody Screen Negative 02/14/20 02/14/20 13:12 Unknown WBC RBC Hgb Hct MCV MCH MCHC RDW Plt Count Creatinine 0.6 Estimated GFR > 60 Uric Acid 4.1 AST 14 ALT 8 Lactate Dehydrogenase 272 H Urine Color Yellow Urine Turbidity Slightly-cloudy Urine pH 6.0 Ur Specific [place] 1.018 Urine Protein <15 mg/dl Urine Glucose (UA) Neg Urine Ketones Neg Urine Blood Neg Urine Nitrite Neg Urine Bilirubin Neg Urine Urobilinogen 4.0 Ur Leukocyte Esterase Neg Urine WBC (Auto) 5.0 Urine RBC (Auto) 3.0 U Epithel Cells (Auto) 15.0 H Urine Mucus Few Syphilis IgG Antibody Blood Type Antibody Screen
--- NOTE | 2020-02-15 16:06 | Progress Note ---
Assessment and Plan patient resting, c/o back pain. denies feeling cramping or contractions. no s/s labor. RN to remove cervidil @ 1700. Pt will be allowed regular diet and if FHT cat 1, pt may be OOB to bathroom for PM care. All questions addressed. Pt will rest tonight and resume IOL tomorrow morning. Plan of care discussed with patient and RN, all questions addressed. - Patient Problems (1) 39 weeks gestation of Onset Date: ~02/14/20 Current Visit: Yes Status: Acute (2) Morbid obesity with BMI of 70 and over, adult Onset Date: ~02/14/20 Current Visit: Yes Status: Acute (3) Oligohydramnios in third trimester Onset Date: ~02/14/20 Current Visit: Yes Status: Acute Qualifiers: Fetus number: single or unspecified fetus Qualified Code(s): O41.03X0 - Oligohydramnios, third trimester, not applicable or unspecified (4) Gestational hypertension Onset Date: ~02/14/20 Current Visit: No Status: Acute Qualifiers: Trimester: third trimester Qualified Code(s): O13.3 - Gestational [-induced] hypertension without significant proteinuria, third trimester Subjective - Subjective Date of service: 02/15/20 Principal diagnosis: IUP@39w1d, BMI 85, oligohydramnios, GHTN; Cervidil Patient reports: new complaints (lower back pain), movement normal, no loss of fluid, no vaginal bleeding, no contractions Objective - Vital Signs Vital Signs: Vital Signs - 12hr 02/15/20 02/15/20 02/15/20 03:59 04:04 04:09 Pulse Rate 84 80 86 Blood Pressure O2 Sat by Pulse 99 99 99 Oximetry 02/15/20 02/15/20 02/15/20 04:14 04:19 04:24 Pulse Rate 85 92 H 92 H Blood Pressure O2 Sat by Pulse 99 100 99 Oximetry 02/15/20 02/15/20 02/15/20 04:29 04:34 04:39 Pulse Rate 80 99 H 91 H Blood Pressure O2 Sat by Pulse 99 99 99 Oximetry 02/15/20 02/15/20 02/15/20 04:44 04:51 05:13 Pulse Rate 93 H 90 102 H Blood Pressure 116/74 O2 Sat by Pulse 100 100 Oximetry 02/15/20 02/15/20 02/15/20 05:18 05:23 05:28 Pulse Rate 89 93 H 91 H Blood Pressure O2 Sat by Pulse 100 99 100 Oximetry 02/15/20 02/15/20 02/15/20 05:33 05:36 05:38 Pulse Rate 84 98 H 86 Blood Pressure O2 Sat by Pulse 100 94 100 Oximetry 02/15/20 02/15/20 02/15/20 05:43 05:48 05:51 Pulse Rate 84 84 90 Blood Pressure 125/66 O2 Sat by Pulse 100 100 Oximetry 02/15/20 02/15/20 02/15/20 05:53 05:58 06:03 Pulse Rate 85 79 81 Blood Pressure O2 Sat by Pulse 100 100 100 Oximetry 02/15/20 02/15/20 02/15/20 06:08 06:13 06:18 Pulse Rate 81 82 81 Blood Pressure O2 Sat by Pulse 100 100 100 Oximetry 02/15/20 02/15/20 02/15/20 06:23 06:28 06:33 Pulse Rate 80 82 83 Blood Pressure O2 Sat by Pulse 100 100 100 Oximetry 02/15/20 02/15/20 02/15/20 06:38 06:43 06:51 Pulse Rate 101 H 93 H 97 H Blood Pressure 124/81 O2 Sat by Pulse 98 100 Oximetry 02/15/20 02/15/20 02/15/20 06:54 06:59 07:03 Pulse Rate 93 H 90 63 Blood Pressure O2 Sat by Pulse 100 100 82 L Oximetry 02/15/20 02/15/20 02/15/20 07:04 07:09 07:14 Pulse Rate 90 84 84 Blood Pressure O2 Sat by Pulse 100 100 100 Oximetry 02/15/20 02/15/20 02/15/20 07:19 07:24 07:29 Pulse Rate 85 88 79 Blood Pressure O2 Sat by Pulse 100 100 100 Oximetry 02/15/20 02/15/20 02/15/20 07:34 07:39 07:44 Pulse Rate 89 92 H 87 Blood Pressure O2 Sat by Pulse 100 100 100 Oximetry 02/15/20 02/15/20 02/15/20 07:49 07:51 07:54 Pulse Rate 81 85 80 Blood Pressure 119/58 O2 Sat by Pulse 100 91 100 Oximetry 02/15/20 02/15/20 02/15/20 07:59 08:04 08:09 Pulse Rate 85 83 90 Blood Pressure O2 Sat by Pulse 100 100 100 Oximetry 02/15/20 02/15/20 02/15/20 08:14 08:19 08:24 Pulse Rate 82 83 82 Blood Pressure O2 Sat by Pulse 98 99 98 Oximetry 02/15/20 02/15/20 02/15/20 08:29 08:34 08:39 Pulse Rate 75 80 76 Blood Pressure O2 Sat by Pulse 99 99 99 Oximetry 02/15/20 02/15/20 02/15/20 08:44 08:49 08:51 Pulse Rate 78 80 81 Blood Pressure 119/66 O2 Sat by Pulse 99 99 Oximetry 02/15/20 02/15/20 02/15/20 08:54 08:59 09:01 Pulse Rate 79 75 93 H Blood Pressure O2 Sat by Pulse 99 97 84 Oximetry 02/15/20 02/15/20 02/15/20 09:04 09:07 09:09 Pulse Rate 81 80 83 Blood Pressure O2 Sat by Pulse 99 90 97 Oximetry 02/15/20 02/15/20 02/15/20 09:14 09:19 09:24 Pulse Rate 85 79 95 H Blood Pressure O2 Sat by Pulse 100 100 98 Oximetry 02/15/20 02/15/20 02/15/20 09:29 09:34 09:39 Pulse Rate 84 86 88 Blood Pressure O2 Sat by Pulse 100 100 100 Oximetry 02/15/20 02/15/20 02/15/20 09:44 09:49 09:51 Pulse Rate 81 86 85 Blood Pressure 121/64 O2 Sat by Pulse 100 100 Oximetry 02/15/20 02/15/20 02/15/20 09:54 09:59 10:04 Pulse Rate 89 90 82 Blood Pressure O2 Sat by Pulse 99 100 99 Oximetry 02/15/20 02/15/20 02/15/20 10:09 10:14 10:19 Pulse Rate 87 83 87 Blood Pressure O2 Sat by Pulse 100 100 100 Oximetry 02/15/20 02/15/20 02/15/20 10:24 10:29 10:34 Pulse Rate 85 84 85 Blood Pressure O2 Sat by Pulse 100 100 100 Oximetry 02/15/20 02/15/20 02/15/20 10:39 10:44 10:49 Pulse Rate 89 86 91 H Blood Pressure O2 Sat by Pulse 100 100 100 Oximetry 02/15/20 02/15/20 02/15/20 10:51 10:54 10:59 Pulse Rate 84 85 88 Blood Pressure 122/62 O2 Sat by Pulse 99 99 Oximetry 02/15/20 02/15/20 02/15/20 11:04 11:09 11:14 Pulse Rate 88 81 81 Blood Pressure O2 Sat by Pulse 98 99 99 Oximetry 02/15/20 02/15/20 02/15/20 11:19 11:24 11:29 Pulse Rate 80 79 76 Blood Pressure O2 Sat by Pulse 99 99 99 Oximetry 02/15/20 02/15/20 02/15/20 11:34 11:39 11:44 Pulse Rate 82 79 82 Blood Pressure O2 Sat by Pulse 99 99 99 Oximetry 02/15/20 02/15/20 02/15/20 11:49 11:52 11:54 Pulse Rate 82 89 79 Blood Pressure 148/72 O2 Sat by Pulse 99 99 Oximetry 02/15/20 02/15/20 02/15/20 11:59 12:04 12:09 Pulse Rate 84 87 83 Blood Pressure O2 Sat by Pulse 98 99 99 Oximetry 02/15/20 02/15/20 02/15/20 12:14 12:19 12:24 Pulse Rate 85 94 H 92 H Blood Pressure O2 Sat by Pulse 100 99 99 Oximetry 02/15/20 02/15/20 02/15/20 12:29 12:34 12:39 Pulse Rate 84 92 H 91 H Blood Pressure O2 Sat by Pulse 99 100 100 Oximetry 02/15/20 02/15/20 02/15/20 12:44 12:49 12:51 Pulse Rate 86 85 86 Blood Pressure 119/68 O2 Sat by Pulse 99 100 Oximetry 02/15/20 02/15/20 02/15/20 12:54 12:59 13:04 Pulse Rate 91 H 87 85 Blood Pressure O2 Sat by Pulse 100 100 100 Oximetry 02/15/20 02/15/20 02/15/20 13:09 13:14 13:19 Pulse Rate 84 85 101 H Blood Pressure O2 Sat by Pulse 100 100 100 Oximetry 02/15/20 02/15/20 02/15/20 13:24 13:29 13:34 Pulse Rate 91 H 91 H 86 Blood Pressure O2 Sat by Pulse 100 100 100 Oximetry 02/15/20 02/15/20 02/15/20 13:39 13:44 13:49 Pulse Rate 91 H 96 H 90 Blood Pressure O2 Sat by Pulse 100 100 100 Oximetry 02/15/20 02/15/20 02/15/20 13:51 13:54 13:59 Pulse Rate 90 89 80 Blood Pressure 120/77 O2 Sat by Pulse 100 100 Oximetry 02/15/20 02/15/20 02/15/20 14:04 14:09 14:11 Pulse Rate 87 84 103 H Blood Pressure O2 Sat by Pulse 100 100 84 Oximetry 02/15/20 02/15/20 02/15/20 14:14 14:19 14:24 Pulse Rate 92 H 91 H 87 Blood Pressure O2 Sat by Pulse 100 100 78 L Oximetry 02/15/20 02/15/20 02/15/20 14:29 14:34 14:39 Pulse Rate 95 H 88 90 Blood Pressure O2 Sat by Pulse 100 100 100 Oximetry 02/15/20 02/15/20 02/15/20 14:44 14:49 14:51 Pulse Rate 69 90 85 Blood Pressure 126/79 O2 Sat by Pulse 100 100 Oximetry 02/15/20 02/15/20 02/15/20 14:54 14:59 15:03 Pulse Rate 91 H 83 106 H Blood Pressure O2 Sat by Pulse 100 100 90 Oximetry 02/15/20 02/15/20 02/15/20 15:04 15:09 15:21 Pulse Rate 86 87 87 Blood Pressure O2 Sat by Pulse 100 100 100 Oximetry 02/15/20 02/15/20 02/15/20 15:26 15:31 15:36 Pulse Rate 87 89 86 Blood Pressure O2 Sat by Pulse 100 100 100 Oximetry 02/15/20 02/15/20 02/15/20 15:41 15:46 15:51 Pulse Rate 89 83 85 Blood Pressure 139/80 O2 Sat by Pulse 100 100 100 Oximetry - Exam Cardiovascular: Regular rate Lungs: Normal air movement Abdomen: Present: normal appearance, soft Vulva: both: normal Uterus: Present: normal FHR: category 1 Uterine Contraction Monitor Mode: External Uterine Contraction Pattern: Absent Uterine Tone Measurement Phase: Resting Extremities: normal - Labs Labs: Abnormal Labs 02/14/20 02/14/20 02/14/20 13:12 13:12 Unknown RBC 3.31 L Hgb 9.5 L Hct 27.8 L RDW 16.0 H Lactate Dehydrogenase 272 H U Epithel Cells (Auto) 15.0 H Laboratory Results - last 24 hr 02/14/20 02/14/20 13:12 Unknown Urine Color Yellow Urine Turbidity Slightly-cloudy Urine pH 6.0 Ur Specific [place] 1.018 Urine Protein <15 mg/dl Urine Glucose (UA) Neg Urine Ketones Neg Urine Blood Neg Urine Nitrite Neg Urine Urobilinogen 4.0 Ur Leukocyte Esterase Neg Urine WBC (Auto) 5.0 Urine Mucus Few Syphilis IgG Antibody Nonreactive
[2020-02-15] MEDS ORDERED: ACETAMINOPHEN 500 MG TAB PO ONE (19:00)
[2020-02-16] MEDS: LACTATED RINGERS 1,000 ML IV SCH (05:24)
[2020-02-16] MEDS ORDERED: DINOPROSTONE 10 MG VAG SUPP VG SCH ×2 (08:00→20:00)
--- NOTE | 2020-02-16 08:15 | Progress Note ---
<RADHA OROZCO - Last Filed: 02/16/20 08:11> Assessment and Plan A: 34 y.o. IOL d/t gHTN. BMI 80+. Cervical exam 1.5/50/-3. P: Plan discussed with Dr. Barr. Plan for Cervidil this AM. Plan discussed with pt. Verbalized understanding and agreement. Subjective - Subjective Date of service: 02/16/20 (Pt not feeling ctxs.) Principal diagnosis: IUP@39w1d, BMI 85, oligohydramnios, GHTN; Cervidil Patient reports: new complaints (lower back pain), movement normal, no loss of fluid, no vaginal bleeding, no contractions Objective - Vital Signs Vital Signs: Vital Signs - 12hr 02/15/20 02/15/20 02/15/20 21:48 21:53 21:58 Temperature Pulse Rate 95 H 89 87 Blood Pressure Blood Pressure [Right] O2 Sat by Pulse 100 100 100 Oximetry 02/15/20 02/15/20 02/15/20 22:03 22:08 22:10 Temperature Pulse Rate 89 94 H 52 L Blood Pressure Blood Pressure [Right] O2 Sat by Pulse 100 100 55 L Oximetry 02/15/20 02/15/20 02/15/20 22:13 22:18 22:23 Temperature Pulse Rate 95 H 94 H 96 H Blood Pressure Blood Pressure [Right] O2 Sat by Pulse 100 99 99 Oximetry 02/15/20 02/15/20 02/15/20 22:28 22:33 22:38 Temperature Pulse Rate 92 H 85 91 H Blood Pressure Blood Pressure [Right] O2 Sat by Pulse 100 100 100 Oximetry 02/15/20 02/15/20 02/15/20 22:43 22:48 22:53 Temperature Pulse Rate 93 H 89 95 H Blood Pressure Blood Pressure [Right] O2 Sat by Pulse 100 99 100 Oximetry 02/15/20 02/15/20 02/15/20 22:58 23:03 23:08 Temperature Pulse Rate 92 H 93 H 94 H Blood Pressure Blood Pressure [Right] O2 Sat by Pulse 100 100 100 Oximetry 02/15/20 02/15/20 02/15/20 23:13 23:18 23:23 Temperature Pulse Rate 87 85 84 Blood Pressure Blood Pressure [Right] O2 Sat by Pulse 100 100 100 Oximetry 02/15/20 02/15/20 02/15/20 23:28 23:33 23:38 Temperature Pulse Rate 83 84 87 Blood Pressure Blood Pressure [Right] O2 Sat by Pulse 100 100 100 Oximetry 02/15/20 02/15/20 02/15/20 23:43 23:48 23:51 Temperature Pulse Rate 84 87 83 Blood Pressure Blood Pressure [Right] O2 Sat by Pulse 100 100 70 L Oximetry 02/15/20 02/15/20 02/16/20 23:53 23:58 00:03 Temperature Pulse Rate 81 82 92 H Blood Pressure Blood Pressure [Right] O2 Sat by Pulse 100 100 100 Oximetry 02/16/20 02/16/20 02/16/20 00:08 00:13 00:18 Temperature Pulse Rate 88 108 H 84 Blood Pressure Blood Pressure [Right] O2 Sat by Pulse 100 100 100 Oximetry 02/16/20 02/16/20 02/16/20 00:23 00:28 00:33 Temperature Pulse Rate 96 H 82 82 Blood Pressure Blood Pressure [Right] O2 Sat by Pulse 99 99 100 Oximetry 02/16/20 02/16/20 02/16/20 00:38 00:43 00:48 Temperature Pulse Rate 84 84 81 Blood Pressure Blood Pressure [Right] O2 Sat by Pulse 99 99 99 Oximetry 02/16/20 02/16/20 02/16/20 00:53 00:58 01:03 Temperature Pulse Rate 83 87 84 Blood Pressure Blood Pressure [Right] O2 Sat by Pulse 99 99 99 Oximetry 02/16/20 02/16/20 02/16/20 01:08 01:13 01:18 Temperature Pulse Rate 84 83 81 Blood Pressure Blood Pressure [Right] O2 Sat by Pulse 99 99 100 Oximetry 02/16/20 02/16/20 02/16/20 01:23 01:28 01:33 Temperature Pulse Rate 82 83 84 Blood Pressure Blood Pressure [Right] O2 Sat by Pulse 99 99 99 Oximetry 02/16/20 02/16/20 02/16/20 01:38 01:43 01:44 Temperature Pulse Rate 91 H 80 81 Blood Pressure Blood Pressure [Right] O2 Sat by Pulse 90 100 94 Oximetry 02/16/20 02/16/20 02/16/20 01:48 01:52 01:53 Temperature Pulse Rate 88 74 87 Blood Pressure Blood Pressure [Right] O2 Sat by Pulse 95 90 100 Oximetry 02/16/20 02/16/20 02/16/20 01:58 02:03 02:08 Temperature Pulse Rate 85 82 79 Blood Pressure Blood Pressure [Right] O2 Sat by Pulse 100 99 100 Oximetry 02/16/20 02/16/20 02/16/20 02:13 02:18 02:23 Temperature Pulse Rate 95 H 78 79 Blood Pressure Blood Pressure [Right] O2 Sat by Pulse 100 100 100 Oximetry 02/16/20 02/16/20 02/16/20 02:28 02:33 02:38 Temperature Pulse Rate 77 79 80 Blood Pressure Blood Pressure [Right] O2 Sat by Pulse 100 100 100 Oximetry 02/16/20 02/16/20 02/16/20 02:43 02:48 02:53 Temperature Pulse Rate 82 83 85 Blood Pressure Blood Pressure [Right] O2 Sat by Pulse 100 100 100 Oximetry 02/16/20 02/16/20 02/16/20 02:58 03:03 03:08 Temperature Pulse Rate 80 80 81 Blood Pressure Blood Pressure [Right] O2 Sat by Pulse 100 100 94 Oximetry 02/16/20 02/16/20 02/16/20 03:13 03:14 03:18 Temperature Pulse Rate 74 78 74 Blood Pressure Blood Pressure [Right] O2 Sat by Pulse 98 92 99 Oximetry 02/16/20 02/16/20 02/16/20 03:21 03:23 03:28 Temperature Pulse Rate 86 78 81 Blood Pressure Blood Pressure [Right] O2 Sat by Pulse 94 99 96 Oximetry 02/16/20 02/16/20 02/16/20 03:33 03:38 03:43 Temperature Pulse Rate 76 91 H 85 Blood Pressure Blood Pressure [Right] O2 Sat by Pulse 99 100 100 Oximetry 02/16/20 02/16/20 02/16/20 03:48 03:53 03:58 Temperature Pulse Rate 82 87 87 Blood Pressure Blood Pressure [Right] O2 Sat by Pulse 99 100 100 Oximetry 02/16/20 02/16/20 02/16/20 04:03 04:08 04:13 Temperature Pulse Rate 84 90 82 Blood Pressure Blood Pressure [Right] O2 Sat by Pulse 100 100 100 Oximetry 02/16/20 02/16/20 02/16/20 04:18 04:23 04:28 Temperature Pulse Rate 81 86 81 Blood Pressure Blood Pressure [Right] O2 Sat by Pulse 100 99 100 Oximetry 02/16/20 02/16/20 02/16/20 04:33 04:38 04:43 Temperature Pulse Rate 87 82 85 Blood Pressure Blood Pressure [Right] O2 Sat by Pulse 100 100 99 Oximetry 02/16/20 02/16/20 02/16/20 04:48 04:53 04:58 Temperature Pulse Rate 83 85 83 Blood Pressure Blood Pressure [Right] O2 Sat by Pulse 100 98 98 Oximetry 02/16/20 02/16/20 02/16/20 05:03 05:08 05:13 Temperature Pulse Rate 95 H 81 82 Blood Pressure Blood Pressure [Right] O2 Sat by Pulse 100 99 98 Oximetry 02/16/20 02/16/20 02/16/20 05:18 05:23 05:28 Temperature Pulse Rate 80 84 79 Blood Pressure Blood Pressure [Right] O2 Sat by Pulse 98 100 99 Oximetry 02/16/20 02/16/20 02/16/20 05:33 05:38 05:43 Temperature Pulse Rate 82 83 89 Blood Pressure Blood Pressure [Right] O2 Sat by Pulse 99 100 100 Oximetry 02/16/20 02/16/20 02/16/20 05:48 05:53 05:58 Temperature Pulse Rate 85 77 74 Blood Pressure Blood Pressure [Right] O2 Sat by Pulse 100 100 100 Oximetry 02/16/20 02/16/20 02/16/20 06:03 06:08 06:13 Temperature Pulse Rate 81 78 81 Blood Pressure Blood Pressure [Right] O2 Sat by Pulse 99 99 100 Oximetry 02/16/20 02/16/20 02/16/20 06:18 06:23 06:28 Temperature Pulse Rate 80 92 H 77 Blood Pressure Blood Pressure [Right] O2 Sat by Pulse 99 99 100 Oximetry 02/16/20 02/16/20 02/16/20 06:32 06:33 06:38 Temperature 98.8 F Pulse Rate 77 81 84 Blood Pressure 132/67 Blood Pressure 132/67 [Right] O2 Sat by Pulse 100 97 Oximetry 02/16/20 02/16/20 02/16/20 06:41 06:43 06:48 Temperature Pulse Rate 80 79 73 Blood Pressure Blood Pressure [Right] O2 Sat by Pulse 94 100 96 Oximetry 02/16/20 02/16/20 02/16/20 06:49 06:53 06:58 Temperature Pulse Rate 79 92 H 100 H Blood Pressure Blood Pressure [Right] O2 Sat by Pulse 93 96 95 Oximetry 02/16/20 02/16/20 02/16/20 06:59 07:03 07:08 Temperature Pulse Rate 98 H 86 89 Blood Pressure Blood Pressure [Right] O2 Sat by Pulse 91 100 100 Oximetry 02/16/20 02/16/20 02/16/20 07:13 07:14 07:18 Temperature Pulse Rate 96 H 60 85 Blood Pressure Blood Pressure [Right] O2 Sat by Pulse 100 85 100 Oximetry 02/16/20 02/16/20 02/16/20 07:23 07:28 07:33 Temperature Pulse Rate 83 86 97 H Blood Pressure Blood Pressure [Right] O2 Sat by Pulse 100 100 100 Oximetry 02/16/20 02/16/20 02/16/20 07:38 07:43 07:48 Temperature Pulse Rate 89 79 83 Blood Pressure Blood Pressure [Right] O2 Sat by Pulse 100 100 100 Oximetry 02/16/20 02/16/20 02/16/20 07:53 07:58 08:03 Temperature Pulse Rate 83 85 83 Blood Pressure Blood Pressure [Right] O2 Sat by Pulse 100 99 100 Oximetry 02/16/20 08:08 Temperature Pulse Rate 86 Blood Pressure Blood Pressure [Right] O2 Sat by Pulse 100 Oximetry - Exam Narrative Exam: Pt denies HARMON, blurred vision, spots before her eyes, upper abdominal pain, chest pain, and shortness of breath. Breasts: deferred Cardiovascular: Regular rate Lungs: Normal air movement Abdomen: Present: normal appearance, soft Vulva: both: normal Uterus: Present: normal FHR: category 1 Uterine Contraction Monitor Mode: External Uterine Contraction Pattern: Irregular Uterine Tone Measurement Phase: Resting Uterine Contraction Intensity: Mild Extremities: edema (Generalized edema) Deep Tendon Reflex Grade: Normal +2 - Labs Labs: Abnormal Labs 02/14/20 02/14/20 02/14/20 13:12 13:12 Unknown RBC 3.31 L Hgb 9.5 L Hct 27.8 L RDW 16.0 H Lactate Dehydrogenase 272 H U Epithel Cells (Auto) 15.0 H <EVENS BARR - Last Filed: 02/16/20 08:48> Assessment and Plan Again discussed plan of care. Will proceed with cervidil again today and possibly hold IOL efforts at night d/t concern for availability of appropriate staffing and personnel. Also again discussed cervidil vs pitocin, active labor vs latent phase and with her BMI she's a poor surgical candidate therefore will make every effort to ensure a vaginal delivery. Questions encouraged and answered, she and her mother voiced understanding and agrees with plan of care. - Patient Problems (1) 39 weeks gestation of Onset Date: ~02/14/20 Current Visit: Yes Status: Acute (2) Morbid obesity with BMI of 70 and over, adult Onset Date: ~02/14/20 Current Visit: Yes Status: Acute (3) Oligohydramnios in third trimester Onset Date: ~02/14/20 Current Visit: Yes Status: Acute Qualifiers: Fetus number: single or unspecified fetus Qualified Code(s): O41.03X0 - Oligohydramnios, third trimester, not applicable or unspecified (4) Gestational hypertension Onset Date: ~02/14/20 Current Visit: No Status: Acute Qualifiers: Trimester: third trimester Qualified Code(s): O13.3 - Gestational [-induced] hypertension without significant proteinuria, third trimester (5) Anemia Current Visit: Yes Status: Acute Plan to address problem: Will have her crossmatched for 2units and will attempt to stay 2units ahead. She will need another crossmatched tomorrow. Objective - Vital Signs Vital Signs: Vital Signs - 12hr 02/15/20 02/15/20 02/15/20 21:48 21:53 21:58 Temperature Pulse Rate 95 H 89 87 Blood Pressure Blood Pressure [Right] O2 Sat by Pulse 100 100 100 Oximetry 02/15/20 02/15/20 02/15/20 22:03 22:08 22:10 Temperature Pulse Rate 89 94 H 52 L Blood Pressure Blood Pressure [Right] O2 Sat by Pulse 100 100 55 L Oximetry 02/15/20 02/15/20 02/15/20 22:13 22:18 22:23 Temperature Pulse Rate 95 H 94 H 96 H Blood Pressure Blood Pressure [Right] O2 Sat by Pulse 100 99 99 Oximetry 02/15/20 02/15/20 02/15/20 22:28 22:33 22:38 Temperature Pulse Rate 92 H 85 91 H Blood Pressure Blood Pressure [Right] O2 Sat by Pulse 100 100 100 Oximetry 02/15/20 02/15/20 02/15/20 22:43 22:48 22:53 Temperature Pulse Rate 93 H 89 95 H Blood Pressure Blood Pressure [Right] O2 Sat by Pulse 100 99 100 Oximetry 02/15/20 02/15/20 02/15/20 22:58 23:03 23:08 Temperature Pulse Rate 92 H 93 H 94 H Blood Pressure Blood Pressure [Right] O2 Sat by Pulse 100 100 100 Oximetry 02/15/20 02/15/20 02/15/20 23:13 23:18 23:23 Temperature Pulse Rate 87 85 84 Blood Pressure Blood Pressure [Right] O2 Sat by Pulse 100 100 100 Oximetry 02/15/20 02/15/20 02/15/20 23:28 23:33 23:38 Temperature Pulse Rate 83 84 87 Blood Pressure Blood Pressure [Right] O2 Sat by Pulse 100 100 100 Oximetry 02/15/20 02/15/20 02/15/20 23:43 23:48 23:51 Temperature Pulse Rate 84 87 83 Blood Pressure Blood Pressure [Right] O2 Sat by Pulse 100 100 70 L Oximetry 02/15/20 02/15/20 02/16/20 23:53 23:58 00:03 Temperature Pulse Rate 81 82 92 H Blood Pressure Blood Pressure [Right] O2 Sat by Pulse 100 100 100 Oximetry 02/16/20 02/16/20 02/16/20 00:08 00:13 00:18 Temperature Pulse Rate 88 108 H 84 Blood Pressure Blood Pressure [Right] O2 Sat by Pulse 100 100 100 Oximetry 02/16/20 02/16/20 02/16/20 00:23 00:28 00:33 Temperature Pulse Rate 96 H 82 82 Blood Pressure Blood Pressure [Right] O2 Sat by Pulse 99 99 100 Oximetry 02/16/20 02/16/20 02/16/20 00:38 00:43 00:48 Temperature Pulse Rate 84 84 81 Blood Pressure Blood Pressure [Right] O2 Sat by Pulse 99 99 99 Oximetry 02/16/20 02/16/20 02/16/20 00:53 00:58 01:03 Temperature Pulse Rate 83 87 84 Blood Pressure Blood Pressure [Right] O2 Sat by Pulse 99 99 99 Oximetry 02/16/20 02/16/20 02/16/20 01:08 01:13 01:18 Temperature Pulse Rate 84 83 81 Blood Pressure Blood Pressure [Right] O2 Sat by Pulse 99 99 100 Oximetry 02/16/20 02/16/20 02/16/20 01:23 01:28 01:33 Temperature Pulse Rate 82 83 84 Blood Pressure Blood Pressure [Right] O2 Sat by Pulse 99 99 99 Oximetry 02/16/20 02/16/20 02/16/20 01:38 01:43 01:44 Temperature Pulse Rate 91 H 80 81 Blood Pressure Blood Pressure [Right] O2 Sat by Pulse 90 100 94 Oximetry 02/16/20 02/16/20 02/16/20 01:48 01:52 01:53 Temperature Pulse Rate 88 74 87 Blood Pressure Blood Pressure [Right] O2 Sat by Pulse 95 90 100 Oximetry 02/16/20 02/16/20 02/16/20 01:58 02:03 02:08 Temperature Pulse Rate 85 82 79 Blood Pressure Blood Pressure [Right] O2 Sat by Pulse 100 99 100 Oximetry 02/16/20 02/16/20 02/16/20 02:13 02:18 02:23 Temperature Pulse Rate 95 H 78 79 Blood Pressure Blood Pressure [Right] O2 Sat by Pulse 100 100 100 Oximetry 02/16/20 02/16/20 02/16/20 02:28 02:33 02:38 Temperature Pulse Rate 77 79 80 Blood Pressure Blood Pressure [Right] O2 Sat by Pulse 100 100 100 Oximetry 02/16/20 02/16/20 02/16/20 02:43 02:48 02:53 Temperature Pulse Rate 82 83 85 Blood Pressure Blood Pressure [Right] O2 Sat by Pulse 100 100 100 Oximetry 02/16/20 02/16/20 02/16/20 02:58 03:03 03:08 Temperature Pulse Rate 80 80 81 Blood Pressure Blood Pressure [Right] O2 Sat by Pulse 100 100 94 Oximetry 02/16/20 02/16/20 02/16/20 03:13 03:14 03:18 Temperature Pulse Rate 74 78 74 Blood Pressure Blood Pressure [Right] O2 Sat by Pulse 98 92 99 Oximetry 02/16/20 02/16/20 02/16/20 03:21 03:23 03:28 Temperature Pulse Rate 86 78 81 Blood Pressure Blood Pressure [Right] O2 Sat by Pulse 94 99 96 Oximetry 02/16/20 02/16/20 02/16/20 03:33 03:38 03:43 Temperature Pulse Rate 76 91 H 85 Blood Pressure Blood Pressure [Right] O2 Sat by Pulse 99 100 100 Oximetry 02/16/20 02/16/20 02/16/20 03:48 03:53 03:58 Temperature Pulse Rate 82 87 87 Blood Pressure Blood Pressure [Right] O2 Sat by Pulse 99 100 100 Oximetry 02/16/20 02/16/20 02/16/20 04:03 04:08 04:13 Temperature Pulse Rate 84 90 82 Blood Pressure Blood Pressure [Right] O2 Sat by Pulse 100 100 100 Oximetry 02/16/20 02/16/20 02/16/20 04:18 04:23 04:28 Temperature Pulse Rate 81 86 81 Blood Pressure Blood Pressure [Right] O2 Sat by Pulse 100 99 100 Oximetry 02/16/20 02/16/20 02/16/20 04:33 04:38 04:43 Temperature Pulse Rate 87 82 85 Blood Pressure Blood Pressure [Right] O2 Sat by Pulse 100 100 99 Oximetry 02/16/20 02/16/20 02/16/20 04:48 04:53 04:58 Temperature Pulse Rate 83 85 83 Blood Pressure Blood Pressure [Right] O2 Sat by Pulse 100 98 98 Oximetry 02/16/20 02/16/20 02/16/20 05:03 05:08 05:13 Temperature Pulse Rate 95 H 81 82 Blood Pressure Blood Pressure [Right] O2 Sat by Pulse 100 99 98 Oximetry 02/16/20 02/16/20 02/16/20 05:18 05:23 05:28 Temperature Pulse Rate 80 84 79 Blood Pressure Blood Pressure [Right] O2 Sat by Pulse 98 100 99 Oximetry 02/16/20 02/16/20 02/16/20 05:33 05:38 05:43 Temperature Pulse Rate 82 83 89 Blood Pressure Blood Pressure [Right] O2 Sat by Pulse 99 100 100 Oximetry 02/16/20 02/16/20 02/16/20 05:48 05:53 05:58 Temperature Pulse Rate 85 77 74 Blood Pressure Blood Pressure [Right] O2 Sat by Pulse 100 100 100 Oximetry 02/16/20 02/16/20 02/16/20 06:03 06:08 06:13 Temperature Pulse Rate 81 78 81 Blood Pressure Blood Pressure [Right] O2 Sat by Pulse 99 99 100 Oximetry 02/16/20 02/16/2002/15/20 06:18 06:23 06:28 Temperature Pulse Rate 80 92 H 77 Blood Pressure Blood Pressure [Right] O2 Sat by Pulse 99 99 100 Oximetry 02/16/20 02/16/20 02/16/20 06:32 06:33 06:38 Temperature 98.8 F Pulse Rate 77 81 84 Blood Pressure 132/67 Blood Pressure 132/67 [Right] O2 Sat by Pulse 100 97 Oximetry 02/16/20 02/16/20 02/16/20 06:41 06:43 06:48 Temperature Pulse Rate 80 79 73 Blood Pressure Blood Pressure [Right] O2 Sat by Pulse 94 100 96 Oximetry 02/16/20 02/16/20 02/16/20 06:49 06:53 06:58 Temperature Pulse Rate 79 92 H 100 H Blood Pressure Blood Pressure [Right] O2 Sat by Pulse 93 96 95 Oximetry 02/16/20 02/16/20 02/16/20 06:59 07:03 07:08 Temperature Pulse Rate 98 H 86 89 Blood Pressure Blood Pressure [Right] O2 Sat by Pulse 91 100 100 Oximetry 02/16/20 02/16/20 02/16/20 07:13 07:14 07:18 Temperature Pulse Rate 96 H 60 85 Blood Pressure Blood Pressure [Right] O2 Sat by Pulse 100 85 100 Oximetry 02/16/20 02/16/20 02/16/20 07:23 07:28 07:33 Temperature Pulse Rate 83 86 97 H Blood Pressure Blood Pressure [Right] O2 Sat by Pulse 100 100 100 Oximetry 02/16/20 02/16/20 02/16/20 07:38 07:43 07:48 Temperature Pulse Rate 89 79 83 Blood Pressure Blood Pressure [Right] O2 Sat by Pulse 100 100 100 Oximetry 02/16/20 02/16/20 02/16/20 07:53 07:58 08:03 Temperature Pulse Rate 83 85 83 Blood Pressure Blood Pressure [Right] O2 Sat by Pulse 100 99 100 Oximetry 02/16/20 02/16/20 02/16/20 08:08 08:13 08:18 Temperature Pulse Rate 86 86 85 Blood Pressure Blood Pressure [Right] O2 Sat by Pulse 100 99 99 Oximetry 02/16/20 02/16/20 02/16/20 08:23 08:28 08:33 Temperature Pulse Rate 93 H 97 H 90 Blood Pressure Blood Pressure [Right] O2 Sat by Pulse 100 97 99 Oximetry 02/16/20 08:38 Temperature Pulse Rate 83 Blood Pressure Blood Pressure [Right] O2 Sat by Pulse 97 Oximetry - Labs Labs: Abnormal Labs 02/14/20 02/14/20 02/14/20 13:12 13:12 13:12 RBC 3.31 L Hgb 9.5 L Hct 27.8 L RDW 16.0 H Lactate Dehydrogenase 272 H U Epithel Cells (Auto) Crossmatch See Detail 02/14/20 Unknown RBC Hgb Hct RDW Lactate Dehydrogenase U Epithel Cells (Auto) 15.0 H Crossmatch Laboratory Results - last 24 hr 02/14/20 13:12 Blood Type A POSITIVE Antibody Screen Negative Crossmatch See Detail
--- NOTE | 2020-02-16 23:19 | Progress Note ---
Assessment and Plan A: 34 y.o. IOL d/t gHTN. Cervical exam unchanged. Cervidil pulled. P: Continue IOL in the AM. Pt aware. Subjective - Subjective Date of service: 02/16/20 (Cervidil removed @ 1030pm) Principal diagnosis: IUP@39w1d, BMI 85, oligohydramnios, GHTN; Cervidil Patient reports: new complaints (lower back pain), movement normal, no loss of fluid, no vaginal bleeding, no contractions Objective - Vital Signs Vital Signs: Vital Signs - 12hr 02/16/20 02/16/20 02/16/20 11:20 11:25 11:30 Temperature Pulse Rate 78 78 76 Respiratory Rate Blood Pressure O2 Sat by Pulse 99 99 99 Oximetry 02/16/20 02/16/20 02/16/20 11:35 11:40 11:45 Temperature Pulse Rate 81 80 79 Respiratory Rate Blood Pressure O2 Sat by Pulse 99 99 99 Oximetry 02/16/20 02/16/20 02/16/20 11:50 11:55 12:00 Temperature Pulse Rate 80 78 98 H Respiratory Rate Blood Pressure O2 Sat by Pulse 99 99 100 Oximetry 02/16/20 02/16/20 02/16/20 12:05 12:10 12:15 Temperature Pulse Rate 92 H 95 H 87 Respiratory Rate Blood Pressure O2 Sat by Pulse 100 99 100 Oximetry 02/16/20 02/16/20 02/16/20 12:20 12:25 12:30 Temperature Pulse Rate 84 85 88 Respiratory Rate Blood Pressure O2 Sat by Pulse 99 99 99 Oximetry 02/16/20 02/16/20 02/16/20 12:35 12:40 12:45 Temperature Pulse Rate 87 84 81 Respiratory Rate Blood Pressure O2 Sat by Pulse 98 98 99 Oximetry 02/16/20 02/16/20 02/16/20 12:50 12:55 13:00 Temperature Pulse Rate 94 H 86 99 H Respiratory Rate Blood Pressure O2 Sat by Pulse 99 99 98 Oximetry 02/16/20 02/16/20 02/16/20 13:05 13:10 13:15 Temperature Pulse Rate 91 H 92 H 85 Respiratory Rate Blood Pressure O2 Sat by Pulse 99 98 98 Oximetry 02/16/20 02/16/20 02/16/20 13:20 13:25 13:30 Temperature Pulse Rate 86 90 83 Respiratory Rate Blood Pressure O2 Sat by Pulse 100 99 99 Oximetry 02/16/20 02/16/20 02/16/20 13:35 14:00 19:50 Temperature 98.6 F Pulse Rate 85 87 Respiratory 18 Rate Blood Pressure 128/60 O2 Sat by Pulse 99 Oximetry 02/16/20 19:53 Temperature 98.5 F Pulse Rate Respiratory 19 Rate Blood Pressure O2 Sat by Pulse Oximetry - Exam Narrative Exam: Explained care to pt for the night. To continue monitoring her and start IOL again in the AM. Pt verbalized understanding. Breasts: deferred Cardiovascular: Regular rate Lungs: Normal air movement Abdomen: Present: normal appearance, soft Vulva: both: normal Uterus: Present: normal FHR: auscultation normal, category 1 Uterine Contraction Monitor Mode: External Cervical Dilatation: 1.5 (Per RN) Cervical Effacement Percentage: 50 station: -3 Uterine Contraction Pattern: Absent Uterine Tone Measurement Phase: Resting Uterine Contraction Intensity: Mild Extremities: edema Deep Tendon Reflex Grade: Normal +2 - Labs Labs: Abnormal Labs 02/14/20 02/14/20 02/14/20 13:12 13:12 13:12 RBC 3.31 L Hgb 9.5 L Hct 27.8 L RDW 16.0 H Lactate Dehydrogenase 272 H U Epithel Cells (Auto) Crossmatch See Detail 02/14/20 Unknown RBC Hgb Hct RDW Lactate Dehydrogenase U Epithel Cells (Auto) 15.0 H Crossmatch Laboratory Results - last 24 hr 02/14/20 13:12 Blood Type A POSITIVE Antibody Screen Negative Crossmatch See Detail
[2020-02-17 07:52] LABS: Hematocrit 31.1 % (30.3-42.9); Hemoglobin 10.1 gm/dl (10.1-14.3); Mean Corpuscular HGB Conc 32 % (30-34); Mean Corpuscular Volume 86 fl (79-97); Platelet Count 212 K/mm3 (140-440); Red Blood Count 3.62 M/mm3 (3.65-5.03); Red Cell Distribution Width 16.1 % (13.2-15.2)
--- NOTE | 2020-02-17 09:54 | Progress Note ---
Assessment and Plan - Patient Problems (1) 39 weeks gestation of Onset Date: ~02/14/20 Current Visit: Yes Status: Acute (2) Anemia Current Visit: Yes Status: Acute Qualifiers: Anemia type: iron deficiency (3) Morbid obesity with BMI of 70 and over, adult Onset Date: ~02/14/20 Current Visit: Yes Status: Acute (4) Oligohydramnios in third trimester Onset Date: ~02/14/20 Current Visit: Yes Status: Acute Qualifiers: Fetus number: single or unspecified fetus Qualified Code(s): O41.03X0 - Oligohydramnios, third trimester, not applicable or unspecified (5) BMI 70 and over, adult Current Visit: No Status: Acute Plan to address problem: -cont with serial IOL -start pitocin at this time -anticipate (6) Gestational hypertension Onset Date: ~02/14/20 Current Visit: No Status: Acute Qualifiers: Trimester: third trimester Qualified Code(s): O13.3 - Gestational [-induced] hypertension without significant proteinuria, third trimester Subjective - Subjective Date of service: 02/17/20 Principal diagnosis: IUP@39w1d, BMI 85, oligohydramnios, GHTN; Cervidil Interval history: Pt c/o having contractions and spotting. cx noted to be 2-3/60/-3 mid position. I d/w starting pitocin at this time as she has ripened with the cervdil and has hd cx change since admission. I also d/w doing the epidural for pain when she was in active labor with more cervical dilation.. She request IV pain meds at this time. I d/w active management of labor which would involve AROM and placing internal monitors at the appropriate time.She again expressed understanding and questions were addressed and answered. Patient reports: new complaints (lower back pain), movement normal, no loss of fluid, no vaginal bleeding, no contractions Objective - Vital Signs Vital Signs: Vital Signs - 12hr 02/17/20 02/17/20 02/17/20 06:46 07:05 09:01 Temperature 98.4 F Pulse Rate 95 H 95 H 89 Respiratory 18 Rate Blood Pressure 140/75 131/73 Blood Pressure 140/70 [Right] O2 Sat by Pulse 98 100 Oximetry 02/17/20 02/17/20 02/17/20 09:06 09:11 09:16 Temperature Pulse Rate 83 87 83 Respiratory Rate Blood Pressure Blood Pressure [Right] O2 Sat by Pulse 99 100 100 Oximetry 02/17/20 02/17/20 02/17/20 09:21 09:26 09:31 Temperature Pulse Rate 88 96 H 86 Respiratory Rate Blood Pressure Blood Pressure [Right] O2 Sat by Pulse 100 99 100 Oximetry 02/17/20 02/17/20 02/17/20 09:36 09:41 09:44 Temperature Pulse Rate 91 H 82 96 H Respiratory Rate Blood Pressure Blood Pressure [Right] O2 Sat by Pulse 99 99 81 L Oximetry - Exam FHR: category 1 Cervical Dilatation: 3 Cervical Effacement Percentage: 60 station: -3 Uterine Contraction Pattern: Irregular Extremities: normal - Labs Labs: Abnormal Labs 02/14/20 02/14/20 02/14/20 13:12 13:12 13:12 RBC 3.31 L Hgb 9.5 L Hct 27.8 L RDW 16.0 H Lactate Dehydrogenase 272 H U Epithel Cells (Auto) Crossmatch See Detail 02/14/20 02/17/20 Unknown 07:33 RBC 3.62 L Hgb Hct RDW 16.1 H Lactate Dehydrogenase U Epithel Cells (Auto) 15.0 H Crossmatch Laboratory Results - last 24 hr 02/17/20 07:33 WBC 7.0 RBC 3.62 L Hgb 10.1 Hct 31.1 MCV 86 MCH 28 MCHC 32 RDW 16.1 H Plt Count 212
[2020-02-17] MEDS ORDERED: OXYTOCIN DRIP 30 UNITS/500 ML BAG IV SCH (10:00)
[2020-02-17] MEDS: fentaNYL 100 MCG/2 ML INJ IV SCH ×2 (10:26→13:36)
--- NOTE | 2020-02-17 12:25 | Event Note ---
Date: 02/17/20 Discussion had with patient regarding both management of labor pain and anesthetic choice for a possible C/S. She states that she does not want an epidural. I explained to her that an epidural was the safest choice for her and baby in case of an C/S, and that a general anesthetic for a crash C/S could be very dangerous due to her weight. She verbalized that she understood, but still did not want an epidural at this time.
--- NOTE | 2020-02-17 13:20 | Progress Note ---
Assessment and Plan Pt's mom called out stating there was a gush of fluid +Nitrazine. SVE 4,80,-2 Internals placed. Pt agrees to epidural Bolus infusing Pit @ 8mu Now with internal monitors Ctx q203,45,mod FHT Cat 1. Dr Posadas aware of pt status. BP noted 180-170/100 on right arm When cuff was placed on left arm they are back to her baseline of 140-130/80s. Denies HARMON,blurred vision, chest pain. - Patient Problems (1) Gestational hypertension Onset Date: ~02/14/20 Current Visit: No Status: Acute Qualifiers: Trimester: third trimester Qualified Code(s): O13.3 - Gestational [p regnancy-induced] hypertension without significant proteinuria, third trimester (2) Oligohydramnios in third trimester Onset Date: ~02/14/20 Current Visit: Yes Status: Acute Qualifiers: Fetus number: single or unspecified fetus Qualified Code(s): O41.03X0 - Oligohydramnios, third trimester, not applicable or unspecified (3) Morbid obesity with BMI of 70 and over, adult Onset Date: ~02/14/20 Current Visit: Yes Status: Acute Subjective - Subjective Date of service: 02/17/20 (SROM [id number] Called to room) Principal diagnosis: IUP@39w1d, BMI 85, oligohydramnios, GHTN; Cervidil Interval history: Pt denies any chges in HX noted below at todays assessment EDC Confirmation: 02/21/2020 Past History : 1 Term Births: 0 Premature Births: 0 Living Children: 0 Para: 0 Mult. Births: 0 Prev : 0 Aborta: 0 Elect. Ab: 0 Spont. 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 % Sun Exposure: occasionally Family History Risk Factors: Family History of [place] in females < 65 years old: no Dietary Counseling: pn yes Past Medical History: Reviewed history and no changes required: Asthma: childhood, no intubations Past Surgical History: Reviewed history and no changes required: negative Past Medical History Anesthesia Complications: negative Anemia: negative Autoimmune Disorder: negative Bleeding Disorder: negative Blood Transfusions: negative Breast Disease: negative Diabetes: negative Heart Disease: negative Hypertension: negative Hepatitis/Liver Disease: negative Kidney Disease/UTI: negative Neurologic/Epilepsy/Migraines: negative Phlebitis/Varicosities: negative Psychiatric: negative Pulmonary Disease/Asthma: negative Thyroid Disease: negative Hospitalizations: negative Surgery (Non-quality head): negative Abnormal PAP: negative DAYNA Exposure: negative Infertility: negative Uterine Anomaly: negative Uterine Surgery (not C/S): negative Other Gynecologic Problems: negative Family Hx: HTN, Diabetes Infection History Hx of STD: Trich HIV Risk Eval: no Hepatitis B Risk Eval: low risk Personal hx. of genital herpes: no Partner hx. of genital herpes: no Rash, Viral, or Febrile illness since last LMP? no Varicella/Chicken Pox Status: No TB Risk: no Genetic History Congenital Heart Defect: Mom: no Dad: no Morgan Disease: Mom: no Dad: no Thalassemia Mom: no Dad: no Neural Tube Defect Mom: no Dad: no Down's Syndrome Mom: no Dad: no Luis A-Sachs Mom: no Dad: no Sickle Cell Disease/Trait Mom: no Dad: no Hemophilia Mom: no Dad: no Muscular Dystrophy Mom: no Dad: no Cystic Fibrosis Mom: no Dad: no Emilia Chorea Mom: no Dad: no Mental Retardation Mom: no Dad: no Fragile X Mom: no Dad: no Other Genetic/Chromosomal Disorder Mom: no Dad: no Child w/other defect Mom: no Dad: no Enviromental Exposures Xray Exposure: no Medication, drug, or alcohol use since LMP: no Chemical/Other Exposure: no Exposure to Cat Liter: no Hx of Parvovirus (Fifth Disease): no Occupational Exposure to Children: none Active Medications: None Current Allergies: No known allergies Patient reports: new complaints (lower back pain), movement normal, no loss of fluid, no vaginal bleeding, no contractions Objective - Vital Signs Vital Signs: Vital Signs - 12hr 02/17/20 02/17/20 02/17/20 06:46 07:05 09:01 Temperature 98.4 F Pulse Rate 95 H 95 H 89 Respiratory 18 Rate Blood Pressure 140/75 131/73 Blood Pressure 140/70 [Right] O2 Sat by Pulse 98 100 Oximetry 02/17/20 02/17/20 02/17/20 09:06 09:11 09:16 Temperature Pulse Rate 83 87 83 Respiratory Rate Blood Pressure Blood Pressure [Right] O2 Sat by Pulse 99 100 100 Oximetry 02/17/20 02/17/20 02/17/20 09:21 09:26 09:31 Temperature Pulse Rate 88 96 H 86 Respiratory Rate Blood Pressure Blood Pressure [Right] O2 Sat by Pulse 100 99 100 Oximetry 02/17/20 02/17/20 02/17/20 09:36 09:41 09:44 Temperature Pulse Rate 91 H 82 96 H Respiratory Rate Blood Pressure Blood Pressure [Right] O2 Sat by Pulse 99 99 81 L Oximetry 02/17/20 02/17/20 02/17/20 09:46 09:51 09:56 Temperature Pulse Rate 85 101 H 84 Respiratory Rate Blood Pressure Blood Pressure [Right] O2 Sat by Pulse 99 100 100 Oximetry 02/17/20 02/17/20 02/17/20 10:01 10:06 10:11 Temperature Pulse Rate 87 85 81 Respiratory Rate Blood Pressure Blood Pressure [Right] O2 Sat by Pulse 100 100 100 Oximetry 02/17/20 02/17/20 02/17/20 10:16 10:21 10:26 Temperature Pulse Rate 87 87 92 H Respiratory Rate Blood Pressure Blood Pressure [Right] O2 Sat by Pulse 100 100 100 Oximetry 02/17/20 02/17/20 02/17/20 10:31 10:36 10:41 Temperature Pulse Rate 86 82 85 Respiratory Rate Blood Pressure Blood Pressure [Right] O2 Sat by Pulse 98 100 100 Oximetry 02/17/20 02/17/20 02/17/20 10:46 10:51 10:56 Temperature Pulse Rate 84 85 92 H Respiratory Rate Blood Pressure Blood Pressure [Right] O2 Sat by Pulse 100 100 100 Oximetry 02/17/20 02/17/20 02/17/20 11:01 11:06 11:11 Temperature Pulse Rate 79 83 76 Respiratory Rate Blood Pressure Blood Pressure [Right] O2 Sat by Pulse 100 100 100 Oximetry 02/17/20 02/17/20 02/17/20 11:16 11:21 11:26 Temperature Pulse Rate 80 89 83 Respiratory Rate Blood Pressure Blood Pressure [Right] O2 Sat by Pulse 100 100 100 Oximetry 02/17/20 02/17/20 02/17/20 11:31 11:36 11:41 Temperature Pulse Rate 83 91 H 79 Respiratory Rate Blood Pressure Blood Pressure [Right] O2 Sat by Pulse 100 100 100 Oximetry 02/17/20 02/17/20 02/17/20 11:46 11:51 11:56 Temperature Pulse Rate 83 83 83 Respiratory Rate Blood Pressure Blood Pressure [Right] O2 Sat by Pulse 100 100 100 Oximetry 02/17/20 02/17/20 02/17/20 12:01 12:06 12:11 Temperature Pulse Rate 80 107 H 91 H Respiratory Rate Blood Pressure Blood Pressure [Right] O2 Sat by Pulse 99 98 100 Oximetry 02/17/20 02/17/20 02/17/20 12:16 12:21 12:26 Temperature Pulse Rate 89 100 H 110 H Respiratory Rate Blood Pressure Blood Pressure [Right] O2 Sat by Pulse 100 100 100 Oximetry 02/17/20 02/17/20 02/17/20 12:31 12:36 12:41 Temperature Pulse Rate 95 H 88 94 H Respiratory Rate Blood Pressure Blood Pressure [Right] O2 Sat by Pulse 100 100 100 Oximetry 02/17/20 02/17/20 02/17/20 12:43 12:46 12:51 Temperature Pulse Rate 93 H 103 H 95 H Respiratory Rate Blood Pressure 178/105 Blood Pressure [Right] O2 Sat by Pulse 98 99 Oximetry 02/17/20 02/17/20 02/17/20 12:54 12:56 13:00 Temperature Pulse Rate 92 H 92 H 80 Respiratory Rate Blood Pressure 181/102 Blood Pressure [Right] O2 Sat by Pulse 100 72 L Oximetry 02/17/20 02/17/20 02/17/20 13:01 13:08 13:09 Temperature Pulse Rate 93 H 93 H 97 H Respiratory Rate Blood Pressure 143/73 Blood Pressure [Right] O2 Sat by Pulse 100 83 L 100 Oximetry - Exam Breasts: deferred Cardiovascular: Regular rate Abdomen: Present: normal appearance, soft. Absent: distention, tenderness Uterus: Present: normal FHR: auscultation normal, category 1 Uterine Contraction Monitor Mode: Internal Cervical Dilatation: 4 (clear fluid noted) Cervical Effacement Percentage: 80 (Internals placed) station: -2 Uterine Contraction Pattern: Regular Uterine Tone Measurement Phase: Resting Uterine Contraction Intensity: Moderate Extremities: edema (pt states the edema is worse in the left leg) Deep Tendon Reflex Grade: Normal +2 - Labs Labs: Abnormal Labs 02/14/20 02/14/20 02/14/20 13:12 13:12 13:12 RBC 3.31 L Hgb 9.5 L Hct 27.8 L RDW 16.0 H Lactate Dehydrogenase 272 H U Epithel Cells (Auto) Crossmatch See Detail 02/14/20 02/17/20 Unknown 07:33 RBC 3.62 L Hgb Hct RDW 16.1 H Lactate Dehydrogenase U Epithel Cells (Auto) 15.0 H Crossmatch Laboratory Results - last 24 hr 02/17/20 02/17/20 07:33 10:55 WBC 7.0 RBC 3.62 L Hgb 10.1 Hct 31.1 MCV 86 MCH 28 MCHC 32 RDW 16.1 H Plt Count 212 Blood Type A POSITIVE Antibody Screen Negative
[2020-02-17] MEDS ORDERED: NALOXONE 2 MG/2 ML INJ IV PRN (13:43)
[2020-02-17] MEDS ORDERED: diphenhydrAMINE 50 MG/ML VIAL IV PRN (13:43)
[2020-02-17] MEDS ORDERED: ONDANSETRON 4 MG/2 ML INJ IV PRN (13:43)
[2020-02-17] MEDS ORDERED: NalbUPHINE 10 MG/1 ML INJ IV PRN (13:43)
--- NOTE | 2020-02-17 13:43 | Anesthesia Consultation ---
Anesthesia Consult and Med Hx Date of service: 02/17/20 - Airway Anesthetic Teeth Evaluation: Good ROM Head & Neck: Adequate Mental/Hyoid Distance: Inadequate Mallampati Class: Class IV Intubation Access Assessment: Difficult - Pulmonary Exam CTA: Yes - Cardiac Exam Cardiac Exam: RRR - Pre-Operative Health Status ASA Pre-Surgery Classification: ASA3 Proposed Anesthetic Plan: Epidural - Pulmonary Hx Smoking: No Hx Asthma: Yes (as a child, last used inhaler as a pre-teen) COPD: No Hx Pneumonia: No Hx Sleep Apnea: No - Cardiovascular System Hx Hypertension: No Hx Heart Attack/AMI: No - Central Nervous System Hx Seizures: No Hx Psychiatric Problems: Yes (anxiety and depression) - Gastrointestinal Hx Gastroesophageal Reflux Disease: No - Endocrine Hx Renal Disease: No Hx End Stage Renal Disease: No Hx Insulin Dependent Diabetes: No Hx Non-Insulin Dependent Diabetes: No Hx Hypothyroidism: No Hx Hyperthyroidism: No - Hematic Hx Anemia: Yes (taking iron) Hx Sickle Cell Disease: No - Other Systems Hx Alcohol Use: No Hx Obesity: Yes (Morbid Obesity)
[2020-02-17] MEDS ORDERED: fentaNYL-BUPIV 2 MCG/ML-0.125% 200 MCG/100 ML BAG EPIDURAL SCH (14:00)
[2020-02-17] MEDS ORDERED: DEXMEDETOMIDINE 200 MCG/2 ML VIAL IV ONE (14:31)
--- NOTE | 2020-02-17 14:41 | Progress Note ---
Labor Epidural - Labor Epidural Start Time: 13:50 Stop Time: 14:30 Performed by:: CONNOR FONTAINE Procedure: Patient is requesting a laboring epidural for laboring pain. Patient IDed, H&P reviewed, all questions and concerns were answered, and consent was signed. Timeout was performed at bedside. Patient in sitting position. Sterile prep and drape was performed. 3ml of 1% lidocaine skin wheal at L[2]- L [3]. 18- gauge Touhy epidural needle was advanced to loss of resistance at 13cm with air technique. Negative CSF negative blood. Epidural catheter advanced to [17] centimeters. [-] Aspiration [-] test dose. Sterile dressing applied. Patient tolerated procedure.
[2020-02-17] MEDS ORDERED: LACTATED RINGERS 1,000 ML ONE (15:26)
--- NOTE | 2020-02-17 15:35 | Event Note ---
Date: 02/17/20 (ISE dislodged Replaced Noted hypotension s/p epidural) SVE 5-6,90,-1 ISE replaced BP 102/58 Ephedrine given Lates noted Resolved with correction of BP All concerns explained to pt and her mom. All questions addressed. Re-eval as needed.
[2020-02-17] MEDS ORDERED: MINERAL OIL 30 ML ORAL LIQD ONE (17:08)
[2020-02-17] MEDS ORDERED: LIDOCAINE 1.5% /EPINEPHRINE 1:200,000 AMP (5 ML) INFILTRATI ONE (17:29)
[2020-02-17] MEDS ORDERED: miSOPROStol 200 MCG TAB ONE (17:40)
[2020-02-17] MEDS ORDERED: LANOLIN/ZINC/DIMETHICONE (LANSINOH) 7 GM TP PRN (18:30)
[2020-02-17] MEDS ORDERED: PROMETHAZINE 25 MG RECT SUPP PR PRN (18:30)
[2020-02-17] MEDS ORDERED: diphenhydrAMINE 25 MG CAP PO PRN (18:30)
[2020-02-17] MEDS ORDERED: PROMETHAZINE 25 MG TAB PO PRN (18:30)
[2020-02-17] MEDS ORDERED: WITCH HAZEL/ GLYCERIN PAD TP PRN (18:30)
[2020-02-17] MEDS ORDERED: MAGNESIUM HYDROXIDE (MOM) ORAL LIQD UDC PO PRN (18:30)
--- NOTE | 2020-02-17 18:50 | Procedure Note ---
OB Delivery Note - Delivery Date of Delivery: 02/17/20 Butter Fat Tester: HARMONY DANIELLE (sherry @ 1734 02-17-2020) Estimated blood loss: 500cc - Vaginal Delivery presentation: vertex Delivery position: OA Intrapartum events: PROM->1hr before delivery, gestational hypertension, other(please specify) (morbid obesity; oligohydramnios) Delivery induction: cervidil Delivery augmentation: pitocin Delivery monitor: internal FHT, internal uterine Route of delivery: Delivery placenta: spontaneous Delivery cord: 3 umbilical vessels Episiotomy: none Delivery laceration: none Anesthesia: epidural Delivery comments: ANAI present Count correct X 2 Pt delivered with minimal difficulty No dystocia live born male over intact perineum. Baby to mom's abdomen skin to skin. Cord clamped and cut. Placenta and membrane delivered complete and intact, 3 vessel cord. Vagina and uterus inspected Several lg clots removed. IVFs pitocin Cytotec 800mcg MI placed No lacerations noted. 8/9, EBL 500, Wgt 8-0 Mom and baby remain LDR stable FF @ umb Lochia moderate. - A at 1 minute: 8 at 5 minutes: 9 Infant Gender: Male (wgt 8-0 [facility])
[2020-02-17] MEDS ORDERED: SIMETHICONE 80 MG CHEW TAB PO ONE (21:18)
[2020-02-17] MEDS: DOCUSATE SODIUM 100 MG CAP PO SCH (21:34)
[2020-02-17] MEDS: IBUPROFEN 600 MG TAB PO SCH (21:34)
[2020-02-18] MEDS ORDERED: DIPHtheria,PERTUSSIS(ACELL),TETANUS VACCINE/PF 0.5 ML VIAL IM ONE (06:00)
[2020-02-18] MEDS: IBUPROFEN 600 MG TAB PO SCH ×3 (06:17→18:11)
[2020-02-18 08:03] LABS: Hematocrit 26.3 % (30.3-42.9); Hemoglobin 8.6 gm/dl (10.1-14.3)
--- NOTE | 2020-02-18 08:27 | Progress Note ---
Assessment and Plan Pt resting No c/o voiced OOB to toilet and AM care w/o c/o dizziness. VSS BP 130/70 FF Lochia sm with occasional clots. Doing well s/p vag delivery P: continue pathway Advnace diet and activity as tolerated. - Patient Problems (1) Gestational hypertension Onset Date: ~02/14/20 Current Visit: No Status: Acute Qualifiers: Trimester: third trimester Qualified Code(s): O13.3 - Gestational [-induced] hypertension without significant proteinuria, third trimester Plan to address problem: BPs remain 130/70 Pt denies HARMON, blurred vision, chest pain No meds indicated @ this time Subjective - Subjective Date of service: 02/18/20 (pt w/o complaint) Principal diagnosis: Day # 1 s/p BMI 85,GHTN Interval history: Pt denies any chges in HX noted below at todays assessment EDC Confirmation: 02/21/2020 Past History : 1 Term Births: 0 Premature Births: 0 Living Children: 0 Para: 0 Mult. Births: 0 Prev : 0 Aborta: 0 Elect. Ab: 0 Spont. 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 % Sun Exposure: occasionally Family History Risk Factors: Family History of [place] in females < 65 years old: no Dietary Counseling: pn yes Past Medical History: Reviewed history and no changes required: Asthma: childhood, no intubations Past Surgical History: Reviewed history and no changes required: negative Past Medical History Anesthesia Complications: negative Anemia: negative Autoimmune Disorder: negative Bleeding Disorder: negative Blood Transfusions: negative Breast Disease: negative Diabetes: negative Heart Disease: negative Hypertension: negative Hepatitis/Liver Disease: negative Kidney Disease/UTI: negative Neurologic/Epilepsy/Migraines: negative Phlebitis/Varicosities: negative Psychiatric: negative Pulmonary Disease/Asthma: negative Thyroid Disease: negative Hospitalizations: negative Surgery (Non-service tester): negative Abnormal PAP: negative DAYNA Exposure: negative Infertility: negative Uterine Anomaly: negative Uterine Surgery (not C/S): negative Other Gynecologic Problems: negative Family Hx: HTN, Diabetes Infection History Hx of STD: Trich HIV Risk Eval: no Hepatitis B Risk Eval: low risk Personal hx. of genital herpes: no Partner hx. of genital herpes: no Rash, Viral, or Febrile illness since last LMP? no Varicella/Chicken Pox Status: No TB Risk: no Genetic History Congenital Heart Defect: Mom: no Dad: no Morgan Disease: Mom: no Dad: no Thalassemia Mom: no Dad: no Neural Tube Defect Mom: no Dad: no Down's Syndrome Mom: no Dad: no Luis A-Sachs Mom: no Dad: no Sickle Cell Disease/Trait Mom: no Dad: no Hemophilia Mom: no Dad: no Muscular Dystrophy Mom: no Dad: no Cystic Fibrosis Mom: no Dad: no Emilia Chorea Mom: no Dad: no Mental Retardation Mom: no Dad: no Fragile X Mom: no Dad: no Other Genetic/Chromosomal Disorder Mom: no Dad: no Child w/other defect Mom: no Dad: no Enviromental Exposures Xray Exposure: no Medication, drug, or alcohol use since LMP: no Chemical/Other Exposure: no Exposure to Cat Liter: no Hx of Parvovirus (Fifth Disease): no Occupational Exposure to Children: none Active Medications: None Current Allergies: No known allergies Patient reports: appetite normal, voiding normally, pain well controlled, a mbulating normally [place]: doing well Objective - Vital Signs Latest vital signs: Vital Signs Temp Pulse Resp BP Pulse Ox 02/18/20 06:17 20 02/18/20 04:57 98.5 F 90 20 131/65 97 02/17/20 23:30 99.0 F 91 H 20 137/77 98 02/17/20 21:37 104 H 100 02/17/20 21:32 99 H 133/73 100 02/17/20 21:27 97 H 100 02/17/20 21:22 98 H 100 02/17/20 21:17 103 H 134/67 100 02/17/20 21:12 99 H 99 02/17/20 21:07 98 H 100 02/17/20 21:02 98 H 137/65 99 02/17/20 20:57 106 H 99 02/17/20 20:52 96 H 98 02/17/20 20:47 96 H 135/65 97 02/17/20 20:42 97 H 98 02/17/20 20:37 94 H 98 02/17/20 20:32 98 H 136/65 98 02/17/20 20:27 91 H 99 02/17/20 20:22 93 H 99 02/17/20 20:17 102 H 141/61 98 02/17/20 20:12 94 H 99 02/17/20 20:07 102 H 99 02/17/20 20:02 96 H 142/67 100 02/17/20 19:57 100 H 100 02/17/20 19:52 98 H 100 02/17/20 19:47 96 H 142/65 100 02/17/20 19:42 101 H 100 02/17/20 19:37 103 H 100 02/17/20 19:33 89 141/60 02/17/20 19:32 93 H 100 02/17/20 19:27 110 H 100 02/17/20 19:22 102 H 100 02/17/20 19:17 101 H 141/70 100 02/17/20 19:12 105 H 99 02/17/20 19:07 107 H 100 02/17/20 19:02 102 H 139/63 100 02/17/20 18:57 106 H 100 02/17/20 18:52 106 H 100 02/17/20 18:47 104 H 139/64 100 02/17/20 18:42 104 H 99 02/17/20 18:37 105 H 99 02/17/20 18:32 108 H 130/61 100 02/17/20 18:27 105 H 100 02/17/20 18:22 107 H 100 02/17/20 18:17 109 H 125/60 100 02/17/20 18:12 107 H 100 02/17/20 18:07 105 H 100 02/17/20 18:03 110 H 118/55 02/17/20 18:02 107 H 99 02/17/20 17:57 105 H 100 02/17/20 17:55 108 H 122/58 02/17/20 17:52 101 H 99 02/17/20 17:49 109 H 160/74 02/17/20 17:47 105 H 100 02/17/20 17:42 108 H 100 02/17/20 17:37 110 H 100 02/17/20 17:32 121 H 100 02/17/20 17:27 119 H 100 02/17/20 17:25 97.9 F 111 H 159/81 02/17/20 17:22 116 H 100 02/17/20 17:17 115 H 100 02/17/20 17:16 105 H 145/93 02/17/20 17:12 111 H 100 02/17/20 17:07 120 H 100 02/17/20 17:02 118 H 99 02/17/20 17:01 105 H 140/71 02/17/20 16:57 110 H 100 02/17/20 16:52 101 H 100 02/17/20 16:47 101 H 100 02/17/20 16:45 104 H 145/70 02/17/20 16:42 112 H 100 02/17/20 16:37 103 H 100 02/17/20 16:32 91 H 100 02/17/20 16:31 96 H 139/66 02/17/20 16:27 91 H 100 02/17/20 16:22 103 H 100 02/17/20 16:17 107 H 98 02/17/20 16:15 111 H 140/78 02/17/20 16:12 105 H 100 02/17/20 16:07 102 H 100 02/17/20 16:03 102 H 141/73 02/17/20 16:02 104 H 100 02/17/20 15:57 97 H 100 02/17/20 15:52 97 H 100 02/17/20 15:47 95 H 100 02/17/20 15:45 93 H 103/55 02/17/20 15:42 106 H 100 02/17/20 15:37 106 H 100 02/17/20 15:35 102 H 109/63 02/17/20 15:32 101 H 100 02/17/20 15:30 102 H 106/61 02/17/20 15:27 96 H 98/55 100 02/17/20 15:22 102 H 99 02/17/20 15:21 93 H 100/59 02/17/20 15:17 94 H 99 02/17/20 15:15 99 H 102/58 02/17/20 15:12 104 H 100 02/17/20 15:07 98 H 98 02/17/20 15:03 97 H 101/55 02/17/20 15:02 97 H 99 02/17/20 14:57 100 H 100 02/17/20 14:52 101 H 100 02/17/20 14:47 105 H 100 02/17/20 14:44 101 H 113/52 02/17/20 14:42 100 H 100 02/17/20 14:39 99 H 113/52 02/17/20 14:37 106 H 100 02/17/20 14:30 99 H 148/67 02/17/20 14:28 92 H 98 02/17/20 14:27 90 142/72 02/17/20 14:24 102 H 141/70 02/17/20 14:23 92 H 98 02/17/20 14:21 93 H 145/69 02/17/20 14:18 90 133/63 99 02/17/20 14:13 101 H 100 02/17/20 14:08 95 H 100 02/17/20 14:01 102 H 100 02/17/20 13:56 86 99 02/17/20 13:51 83 99 02/17/20 13:46 83 189/84 100 02/17/20 13:41 91 H 99 02/17/20 13:36 91 H 100 02/17/20 13:34 99 H 168/78 02/17/20 13:29 91 H 100 02/17/20 13:25 94 H 151/72 02/17/20 13:24 91 H 100 02/17/20 13:19 89 99 02/17/20 13:15 95 H 148/69 02/17/20 13:14 98 H 100 02/17/20 13:09 97 H 100 02/17/20 13:08 93 H 143/73 83 L 02/17/20 13:01 93 H 100 02/17/20 13:00 80 72 L 02/17/20 12:56 92 H 100 02/17/20 12:54 92 H 181/102 02/17/20 12:51 95 H 99 02/17/20 12:46 103 H 98 02/17/20 12:43 93 H 178/105 02/17/20 12:41 94 H 100 02/17/20 12:36 88 100 02/17/20 12:31 95 H 100 02/17/20 12:26 110 H 100 02/17/20 12:21 100 H 100 02/17/20 12:16 89 100 02/17/20 12:11 91 H 100 02/17/20 12:06 107 H 98 02/17/20 12:01 80 99 02/17/20 11:56 83 100 02/17/20 11:51 83 100 02/17/20 11:46 83 100 02/17/20 11:41 79 100 02/17/20 11:36 91 H 100 02/17/20 11:31 83 100 02/17/20 11:26 83 100 02/17/20 11:21 89 100 02/17/20 11:16 80 100 02/17/20 11:11 76 100 02/17/20 11:06 83 100 02/17/20 11:01 79 100 02/17/20 10:56 92 H 100 02/17/20 10:51 85 100 02/17/20 10:46 84 100 02/17/20 10:41 85 100 02/17/20 10:36 82 100 02/17/20 10:31 86 98 02/17/20 10:26 92 H 100 02/17/20 10:21 87 100 02/17/20 10:16 87 100 02/17/20 10:11 81 100 02/17/20 10:06 85 100 02/17/20 10:01 87 100 02/17/20 09:56 84 100 02/17/20 09:51 101 H 100 02/17/20 09:46 85 99 02/17/20 09:44 96 H 81 L 02/17/20 09:41 82 99 02/17/20 09:36 91 H 99 02/17/20 09:31 86 100 02/17/20 09:26 96 H 99 02/17/20 09:21 88 100 02/17/20 09:16 83 100 02/17/20 09:11 87 100 02/17/20 09:06 83 99 02/17/20 09:01 89 131/73 100 Intake and Output 02/17/20 02/18/20 02/18/20 22:59 06:59 14:59 Intake Total 240 Balance 240 Intake: Intake, Free Water 240 Other: Estimated Blood Loss 500 - Exam Breasts: Present: normal Cardiovascular: Present: Regular rate Lungs: Present: Normal air movement Abdomen: Present: normal appearance, soft, normal bowel sounds Uterus: Present: normal, fundal height below umbilicus Extremities: Present: normal, edema Deep Tendon Reflex Grade: Normal +2 Incision: Present: normal, dry, intact - Labs Labs: Abnormal lab results 02/14/20 02/17/20 02/18/20 Range/Units 13:12 10:55 06:31 Hgb 8.6 L (10.1-14.3) gm/dl Hct 26.3 L (30.3-42.9) % Crossmatch See Detail See Detail
[2020-02-18] MEDS ORDERED: PRENATAL VIT27-FE FUMARATE-FOLIC ACID VIT TAB PO SCH (10:00)
[2020-02-18] MEDS: DOCUSATE SODIUM 100 MG CAP PO SCH ×2 (10:09→22:27)
--- NOTE | 2020-02-18 13:54 | Post Anesthesia Evaluation ---
- Post Anesthesia Evaluation Patient Participated: Yes Airway Patent: Yes Stable Respiratory Function: Yes Nausea/Vomiting: No Temp > 96.8F: Yes Pain Manageable: Yes Adequeate Hydration: Yes Anesthesia Complications: No Block Receding Appropriately: Yes Patient on Ventilator: No
[2020-02-18] MEDS ORDERED: FUROSEMIDE 20 MG TAB PO ONE ×2 (17:00)
[2020-02-18] MEDS ORDERED: MEASLES, MUMPS & RUBELLA 12,500 UNIT/0.5 ML VACCINE SUB-Q ONE (18:30)
[2020-02-19] MEDS: IBUPROFEN 600 MG TAB PO SCH (05:47)
--- NOTE | 2020-02-19 08:06 | Progress Note ---
<RADHA OROZCO OsbaldoCarlos - Last Filed: 02/19/20 08:07> Assessment and Plan A: 34 y.o. s/p . GHTN. +2 to + 3 edema to lower extremities. P: Continue with care. Awaiting VQ scan. Will discharge home if VQ scan is WNL and pt desires. Subjective - Subjective Date of service: 02/19/20 (Pt with c/o swelling,) Principal diagnosis: Day # 2 s/p BMI 85,GHTN Patient reports: appetite normal, voiding normally, pain well controlled, flatus, ambulating normally : doing well Objective - Vital Signs Latest vital signs: Vital Signs Temp Pulse Resp BP BP Pulse Ox 02/19/20 00:53 98.6 F 94 H 18 118/73 95 02/18/20 19:30 98.6 F 66 18 121/78 02/18/20 16:15 98.4 F 88 18 118/71 100 02/18/20 08:01 98.2 F 92 H 17 116/60 99 Intake and Output 02/18/20 02/19/20 02/19/20 22:59 06:59 14:59 Intake Total 500 600 Balance 500 600 Intake: Oral 200 Intake, Free Water 300 600 Other: Total, Intake Amount 200 # Voids Void 1 - Exam Narrative Exam: Pt denies HARMON, blurred vision, spots before her eyes, chest pain, shortness of breath, and upper abdominal pain. C/o lower extremity swelling. Discussed plan of care to get VQ scan today and discharge home tomorrow. Spoke with nurse regarding V scan. There is no time frame of when scan would get done, only that scan would be done today. RN asked about discharge home after scan. If scan WNL and patient desires discharge home, will discharge home today. BP ranges have been 110's-140's/70-80's. Breasts: Present: deferred Cardiovascular: Present: Normal S1, Normal S2 Lungs: Present: Clear to auscultation Abdomen: Present: normal appearance, soft Vulva: both: normal Uterus: Present: other (Unable to assess fundus d/t BMI. Moderate lochia, appropriate for post delivery. ) Extremities: Present: edema (Lower extremity, + 2 to +3) - Labs Labs: Abnormal lab results 02/18/20 Range/Units 06:31 Hgb 8.6 L (10.1-14.3) gm/dl Hct 26.3 L (30.3-42.9) % <FUENTES ORDONEZ - Last Filed: 02/19/20 12:50> Objective - Vital Signs Latest vital signs: Vital Signs Temp Pulse Resp BP BP Pulse Ox 02/19/20 09:55 98.2 F 82 20 128/77 02/19/20 00:53 98.6 F 94 H 18 118/73 95 02/18/20 19:30 98.6 F 66 18 121/78 02/18/20 16:15 98.4 F 88 18 118/71 100 Intake and Output 02/18/20 02/19/20 02/19/20 22:59 06:59 14:59 Intake Total 500 600 240 Balance 500 600 240 Intake: Oral 200 240 Intake, Free Water 300 600 Other: Total, Intake Amount 200 240 # Voids Void 1 - Addendum Date: 02/19/20 Note: Patient will be discharged after evaluating a lower extremity Doppler study not VQ scan
--- NOTE | 2020-02-19 09:14 | Vascular Lab Report ---
DUPLEX DOPPLER LOWER EXTREMITY VEINS, BILATERAL INDICATION: pt c/o excessive swelling after delivery. Bilateral lower extremity swelling TECHNIQUE: Duplex doppler imaging was performed through the veins of both lower extremities using ve nous compression and other maneuvers. COMPARISON: No relevant prior imaging study available. FINDINGS: Right Common femoral vein: Negative. Right Superficial femoral vein: Negative. Right Popliteal vein: Negative. Right Calf veins: Negative. Left Common femoral vein: Negative. Left Superficial femoral vein: Negative. Left Popliteal vein: Negative. Left Calf veins: Negative. Additional findings: None. IMPRESSION: No sonographic evidence for DVT in either lower extremity. Signer Name: Constantine Cobos Jr, MD Signed: 02/19/2020 9:10 AM Workstation Name: [id number]
--- NOTE | 2020-02-19 09:17 | Discharge Summary ---
Providers - Providers Date of Admission: 02/14/20 11:16 Date of discharge: 02/19/20 Attending physician: CARMINA SALAZAR Primary care physician: FUENTES ORDONEZ Hospitalization Reason for admission: induction of labor Delivery: Episiotomy: none Laceration: none Other procedures: none complications: other (Lower extremity swelling. Venous dopplers negative.) Discharge diagnosis: IUP at term delivered baby: male Pertinent studies: After , pt with c/o lower extremity swelling. Venous Doppler study was ordered and reported as negative. Test results explained to the patient. We also discussed when to call the office with questions and concerns after discharge. Discussed that if blood pressure was 140/90 or greater to retake blood pressure 15 minutes later and if still elevated 140/90 or greater to call the office. Pt to also call if blood pressure are 140/90 or greater with or without HARMON, blurred vision, spots before her eyes, chest pain, shortness of breath, and upper abdominal pain. We discussed how to take a proper blood pressure and a prescription for a wrist cuff was given to the pt. Normal course was also explained. Hospital course: S: Pt doing well. Voiding, ambulating, and passing flatus without difficulty. BC: IUD. Denies HARMON blurred vision, spots before her eyes, chest pain, shortness of breath, and upper abdominal pain. O: VSS. BP's WNL. Adequate I&O's. H/H 8.6/26.3. Asymptomatic anemia from delivery. Minimal bleeding noted. Unable to palpate uterus d/t maternal habitus. A: 34 y.o. s/p , in good condition. In good condition for discharge home. P: Discharge home with instructions. To schedule a blood pressure check in the office in 1 week. To schedule an son's circumcision appointment in 1 week. To schedule a visit in 4 weeks. Condition at discharge: Good Disposition: DC-01 TO HOME OR SELFCARE Plan - Discharge Medications Prescriptions: Lidocain2.5%/Prilocai2.5% [Emla] 5 gm TP PRN #1 tube Ibuprofen [Motrin 800 MG tab] 800 mg PO TID PRN #30 tablet PRN Reason: Pain Blood Pressure Test Kit-Wrist [Wrist Blood Pressure Monitor] 1 each MC ONCE #1 kit - Provider Discharge Summary Activity: routine, no sex for 6 weeks, no heavy lifting 4 weeks, no strenuous exercise Diet: routine Instructions: routine Additional instructions: [] Smoking cessation referral if applicable(refer to patient education folder for contact #) [] Refer to [facility]'s [facility] Booklet Call your doctor immediately for: * Fever > 100.5 * Heavy vaginal bleeding ( >1 pad per hour) * Severe persistent headache * Shortness of breath * Reddened, hot, painful area to leg or breast * Drainage or odor from incision. * Keep incision clean and dry at all times and follow doctor's instructions regarding bathing/showering - Follow up plan Follow up: FUENTES ORDONEZ MD [Primary Care Provider] - 7 Days (Congratulations! Please schedule a blood pressure check in the office in once week. Please schedule your son's circumcision appointment in 1 week. You have been prescribed EMLA cream. Do not use this EMLA cream at home, but bring it with you to your son's circumcision appointment. If you have any questions or concerns after discharge, please do not hesitate to call the office at [phone]. )
[2020-02-19 16:07] VITALS: BP 129/74
== END 2020-02-19 16:30 | disposition home or self-care (01) | DRG 775 ==
LOC: LD 11:16 → OB 02-17 23:26
PROVIDERS: ADMIT Obstetrics & Gynecology; ATTEND Obstetrics & Gynecology
PROC: 3E0P7VZ Introduction of Hormone into Female Reproductive, Via Natural or Artificial Opening (ICD-10-PCS; principal; 2020-02-17)
PROC: 10E0XZZ Delivery of Products of Conception, External Approach (ICD-10-PCS; 2020-02-17)
PROC: 3E0R3BZ Introduction of Anesthetic Agent into Spinal Canal, Percutaneous Approach (ICD-10-PCS; 2020-02-17)
PROC: 00HU33Z Insertion of Infusion Device into Spinal Canal, Percutaneous Approach (ICD-10-PCS; 2020-02-17)
PROC: 3E0234Z Introduction of Serum, Toxoid and Vaccine into Muscle, Percutaneous Approach (ICD-10-PCS; 2020-02-18)
DX: O13.4 Gestational [pregnancy-induced] hypertension without significant proteinuria, complicating childbirth (principal); Z37.0 Single live birth; O99.214 Obesity complicating childbirth; O41.03X0 Oligohydramnios, third trimester, not applicable or unspecified; E66.01 Morbid (severe) obesity due to excess calories; Z3A.39 39 weeks gestation of pregnancy; Z20.828 Contact with and (suspected) exposure to other viral communicable diseases; Z23 Encounter for immunization; O99.02 Anemia complicating childbirth; D50.9 Iron deficiency anemia, unspecified; O99.344 Other mental disorders complicating childbirth; F41.9 Anxiety disorder, unspecified; F32.9 Major depressive disorder, single episode, unspecified
CPT/HCPCS: 36415; 59200; 81001; 82565; 83615; 84450; 84460; 84550; 85014; 85018; 85027; 86592; 86850; 86900; 86901; 86920; 93970; G0378; J2590; J3010; J7120; U0003